=== PATIENT | female | born 2005 | race Caucasian/White ===

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

== ENCOUNTER 2023-01-15 16:20 | Outpatient (CLI) | payer BC, SELFPAY ==
[2023-01-15 17:51] LABS: Basophils Absolute Auto 0.1 K/mm3 (0.0-0.1); Eosinophils Absolute Auto 0.2 K/mm3 (0-0.3); Eosinophils Percent Auto 2.3 % (0-4.4); Hematocrit 43.1 % (37.0-47.0); Hemoglobin 14.3 g/dL (12.0-15.0); Immature Granulocyte Absolute 0.03 K/mm3 (0.00-0.031); Immature Granulocyte Percent A 0.3 % (0-0.5); Lymphocytes Absolute Auto 3.14 K/mm3 (0.9-3.2); Lymphocytes Percent Auto 30.7 % (18.3-44.2); Mean Corpuscular HGB Conc 33.2 g/dl (32-36); Mean Corpuscular Hemoglobin 28.3 pg (26-34); Mean Corpuscular Volume 85.3 fl (80-100); Mean Platelet Volume 10.3 fl (7.4-10.4); Monocytes Absolute Auto 0.7 K/mm3 (0.1-0.6); Monocytes Percent Auto 6.6 % (2.6-8.5); Neutrophils Absolute Auto 6.1 K/mm3 (1.3-6.7); Neutrophils Percent Auto 59.1 % (45.5-73.1); Platelet Count Result 370 k/mm3 (150-375); Red Blood Count 5.05 M/mm3 (4.2-5.4); Red Cell Distribution Width 12.7 % (11.5-14.5); White Blood Count 10.2 K/mm3 (4.5-10.0)
[2023-01-15 18:12] LABS: Alanine Aminotransferase 21 U/L (6-35); Alkaline Phosphatase 55 U/L (45-116); Anion Gap 8 mmol/L (8-16); Aspartate Amino Transferase 31 U/L (14-36); Bilirubin,Total 2.2 mg/dL (0.2-1.3); Blood Urea Nitrogen 12 mg/dL (8-21); CRP < 0.5 mg/dL (<1.0); Carbon Dioxide 28 mmol/L (22-30); Chloride 102 mmol/L (98-107); Estimated Glomerular Filt Rate > 60; Glucose 80 mg/dL (65-110); Potassium 4.3 mmol/L (3.4-5.0); Sodium 138 mmol/L (134-143)
[2023-01-15 18:21] LABS: Vitamin D 25 Hydroxy 36.6 ng/mL
[2023-01-15 22:03] LABS: Erythrocyte Sedimentation Rate 11 mm/hr (0-20)
== END 2023-01-15 16:21 | disposition home or self-care (01) ==
LOC: ANHLAB 16:23
PROVIDERS: PCP Pediatrics; Visit Provider Pediatrics
DX: K52.9 Noninfective gastroenteritis and colitis, unspecified (principal)
CPT/HCPCS: 36415; 80053; 82306; 82607; 85025; 85652; 86140

== ENCOUNTER 2023-08-06 09:38 | Outpatient (CLI) | payer BC, SELFPAY ==
[2023-08-06 11:56] LABS: Basophils Absolute Auto 0.1 K/mm3 (0.0-0.1); Eosinophils Absolute Auto 0.3 K/mm3 (0-0.3); Eosinophils Percent Auto 3.2 % (0-4.4); Hematocrit 40.8 % (37.0-47.0); Hemoglobin 13.4 g/dL (12.0-15.0); Immature Granulocyte Absolute 0.02 K/mm3 (0.00-0.031); Immature Granulocyte Percent A 0.2 % (0-0.5); Lymphocytes Absolute Auto 2.69 K/mm3 (0.9-3.2); Mean Corpuscular HGB Conc 32.8 g/dl (32-36); Mean Corpuscular Hemoglobin 29.3 pg (26-34); Mean Corpuscular Volume 89.3 fl (80-100); Mean Platelet Volume 11.2 fl (7.4-10.4); Monocytes Absolute Auto 0.5 K/mm3 (0.1-0.6); Neutrophils Absolute Auto 4.6 K/mm3 (1.3-6.7); Neutrophils Percent Auto 56.6 % (45.5-73.1); Platelet Count Result 335 k/mm3 (150-375); Red Blood Count 4.57 M/mm3 (4.2-5.4); Red Cell Distribution Width 12.7 % (11.5-14.5); White Blood Count 8.1 K/mm3 (4.5-10.0)
[2023-08-06 12:10] LABS: Alanine Aminotransferase 22 U/L (6-35); Albumin Level 4.5 g/dL (3.7-5.6); Alkaline Phosphatase 47 U/L (45-116); Anion Gap 8 mmol/L (8-16); Aspartate Amino Transferase 30 U/L (14-36); Bilirubin,Total 1.6 mg/dL (0.2-1.3); Blood Urea Nitrogen 11 mg/dL (8-21); CRP < 0.5 mg/dL (<1.0); Calcium 9.3 mg/dL (8.9-10.7); Carbon Dioxide 27 mmol/L (22-30); Chloride 102 mmol/L (98-107); Estimated Glomerular Filt Rate > 60; Glucose 88 mg/dL (65-110); Potassium 3.9 mmol/L (3.4-5.0); Sodium 137 mmol/L (134-143)
[2023-08-06 12:42] LABS: Erythrocyte Sedimentation Rate 8 mm/hr (0-20)
[2023-08-12 17:23] LABS: Calprotectin, Stool 26 mcg/g
== END 2023-08-06 09:39 | disposition home or self-care (01) ==
PROVIDERS: PCP Pediatrics; Visit Provider Pediatrics
DX: K52.9 Noninfective gastroenteritis and colitis, unspecified (principal)
CPT/HCPCS: 36415; 80053; 83993; 85025; 85652; 86140

== ENCOUNTER 2023-08-20 15:50 | Outpatient (CLI) | payer BC, SELFPAY ==
[2023-08-29 17:57] LABS: Adalimumab Ab IBD <10 AU (<10)
== END 2023-08-20 15:51 | disposition home or self-care (01) ==
LOC: ANHLAB 15:53
PROVIDERS: PCP Pediatrics; Visit Provider Pediatrics
DX: K52.9 Noninfective gastroenteritis and colitis, unspecified (principal)
CPT/HCPCS: 36415; 80145; 82607

== ENCOUNTER 2024-01-03 11:03 | Outpatient (CLI) | payer BC, SELFPAY ==
[2024-01-10 18:38] LABS: Calprotectin, Stool 27 mcg/g
== END 2024-01-03 11:04 | disposition home or self-care (01) ==
LOC: ANHLAB 11:06
PROVIDERS: PCP Pediatrics; Visit Provider Pediatrics
DX: K50.00 Crohn's disease of small intestine without complications (principal)
CPT/HCPCS: 83993

== ENCOUNTER 2024-01-07 15:17 | Outpatient (CLI) | payer BC, SELFPAY ==
[2024-01-07 16:12] LABS: Basophils Absolute Auto 0.1 K/mm3 (0.0-0.1); Basophils Percent Auto 0.9 % (0.2-1.2); Eosinophils Absolute Auto 0.3 K/mm3 (0-0.3); Eosinophils Percent Auto 2.7 % (0-4.4); Hematocrit 43.4 % (37.0-47.0); Hemoglobin 14.2 g/dL (12.0-15.0); Immature Granulocyte Absolute 0.03 K/mm3 (0.00-0.031); Immature Granulocyte Percent A 0.3 % (0-0.5); Lymphocytes Absolute Auto 3.66 K/mm3 (0.9-3.2); Lymphocytes Percent Auto 34.9 % (18.3-44.2); Mean Corpuscular HGB Conc 32.7 g/dl (32-36); Mean Corpuscular Hemoglobin 28.5 pg (26-34); Mean Platelet Volume 10.5 fl (7.4-10.4); Monocytes Absolute Auto 0.7 K/mm3 (0.1-0.6); Monocytes Percent Auto 6.7 % (2.6-8.5); Neutrophils Absolute Auto 5.7 K/mm3 (1.3-6.7); Neutrophils Percent Auto 54.5 % (45.5-73.1); Platelet Count Result 385 k/mm3 (150-375); Red Blood Count 4.99 M/mm3 (4.2-5.4); Red Cell Distribution Width 12.9 % (11.5-14.5); White Blood Count 10.5 K/mm3 (4.5-10.0)
[2024-01-07 16:25] LABS: Alanine Aminotransferase 20 U/L (6-35); Albumin Level 4.9 g/dL (3.5-5.1); Alkaline Phosphatase 60 U/L (38-126); Anion Gap 10 mmol/L (8-16); Aspartate Amino Transferase 28 U/L (14-36); Bilirubin,Total 1.5 mg/dL (0.2-1.3); Blood Urea Nitrogen 9 mg/dL (7-17); CRP < 0.5 mg/dL (<1.0); Calcium 9.9 mg/dL (8.4-10.2); Carbon Dioxide 24 mmol/L (22-30); Chloride 103 mmol/L (98-107); Estimated Glomerular Filt Rate > 60; Glucose 91 mg/dL (65-110); Potassium 3.6 mmol/L (3.4-5.0); Sodium 137 mmol/L (137-145)
[2024-01-07 16:30] LABS: Transferrin 323 mg/dL (206-381)
[2024-01-07 17:08] LABS: Iron 74 ug/dL (37-170)
[2024-01-07 17:12] LABS: Erythrocyte Sedimentation Rate 6 mm/hr (0-20)
[2024-01-07 17:18] LABS: Percent Iron Saturation 19 % (20-50)
[2024-01-07 23:17] LABS: Vitamin D 25 Hydroxy 45.9 ng/mL
[2024-01-15 16:29] LABS: Adalimumab Ab IBD <10 AU (<10)
== END 2024-01-07 15:18 | disposition home or self-care (01) ==
LOC: ANHLAB 15:20
PROVIDERS: PCP Pediatrics; Visit Provider Pediatrics
DX: K50.019 Crohn's disease of small intestine with unspecified complications (principal)
CPT/HCPCS: 36415; 80053; 80145; 82306; 82607; 82728; 83540; 83550; 84466; 85025; 85652; 86140

== ENCOUNTER 2024-10-28 15:54 | Outpatient (CLI) | payer BC, SELFPAY ==
[2024-10-28 16:40] LABS: Basophils Absolute Auto 0.1 K/mm3 (0.0-0.1); Basophils Percent Auto 0.9 % (0.2-1.2); Eosinophils Absolute Auto 0.2 K/mm3 (0-0.3); Eosinophils Percent Auto 2.2 % (0-4.4); Immature Granulocyte Absolute 0.03 K/mm3 (0.00-0.031); Immature Granulocyte Percent A 0.3 % (0-0.5); Lymphocytes Absolute Auto 3.52 K/mm3 (0.9-3.2); Mean Corpuscular HGB Conc 33.3 g/dl (32-36); Mean Corpuscular Hemoglobin 29.2 pg (26-34); Mean Corpuscular Volume 87.5 fl (80-100); Monocytes Absolute Auto 0.6 K/mm3 (0.1-0.6); Monocytes Percent Auto 5.8 % (2.6-8.5); Neutrophils Absolute Auto 5.9 K/mm3 (1.3-6.7); Neutrophils Percent Auto 56.8 % (45.5-73.1); Platelet Count Result 366 k/mm3 (150-375); Red Blood Count 5.14 M/mm3 (4.2-5.4); Red Cell Distribution Width 12.4 % (11.5-14.5); White Blood Count 10.4 K/mm3 (4.5-10.0)
[2024-10-28 17:19] LABS: Alanine Aminotransferase 25 U/L (6-35); Alkaline Phosphatase 57 U/L (38-126); Anion Gap 6 mmol/L (4-12); Aspartate Amino Transferase 32 U/L (14-36); Bilirubin,Total 1.3 mg/dL (0.2-1.3); Blood Urea Nitrogen 11 mg/dL (7-17); Calcium 10.2 mg/dL (8.4-10.2); Carbon Dioxide 29 mmol/L (22-30); Chloride 103 mmol/L (98-107); Estimated Glomerular Filt Rate > 60; Glucose 105 mg/dL (65-110); Potassium 3.4 mmol/L (3.4-5.0); Sodium 138 mmol/L (137-145)
[2024-10-28 17:46] LABS: Vitamin D 25 Hydroxy 40.1 ng/mL
== END 2024-10-28 15:55 | disposition home or self-care (01) ==
LOC: ANHLAB 15:59
PROVIDERS: PCP Pediatrics; Visit Provider Pediatrics
DX: K50.00 Crohn's disease of small intestine without complications (principal)
CPT/HCPCS: 36415; 80053; 82306; 82607; 85025

== ENCOUNTER 2025-03-14 12:35 | Outpatient (CLI) | payer BC, SELFPAY ==
--- OUTSIDE RECORDS SUMMARY | 2025-03-14 12:42 | XMS_ITS | Clinical Summary ---
Author Organization [facility] [employer] Address [address] [place] [address] Care Team Providers Care Alarm Signaler Name Role Phone Adolfo Preston MD Primary Care Provider [phone] Source Comments [facility] [employer],non-owned Affiliates and Associated Physician Practices is amultiple site organization consisting of ambulatory clinics and hospital sitesin [place], [place], [place] and [place]. This disclosure is being madepursuant to the Care Everywhere program and may not contain all information available regarding this patient. Last updated 18.BERD [employer] Allergies Active Allergy Reactions Criticality Noted Date Comments Aspirin Other Medium 05/31/2021 Hx crohns Lactose GI Discomfort Medium 04/28/2024 Ibuprofen Other Medium 05/11/2014 Hx crohns. Infliximab Other High 05/11/2014 Syncope and flushing. Medications * Be aware that medications may not be up to date on this document. Alwaysverify current medications with the patient. Ferrous Sulfate (IRON PO) Active acetaminophen (TYLENOL) 325 MG tablet Take 1 (one) tablet by mouth every 4 hours as needed for Fever or Pain Maximum allowable Acetaminophen amount = 4 Grams (4000 mg) / 24 hours. 50 tablet 09/10/20 21 Active sertraline (Zoloft) 100 MG tablet 08/15/20 24 Active multivitamin daily tablet Take 1 (one) tablet by mouth daily with food Active Adalimumab-ada z (Hyrimoz) 40 MG/0.4ML injection Inject 0.4 mL subcutaneously every 14 days 0.8 mL 5 11/07/19 25 Active sertraline (Zoloft) 50 MG tablet Take 1 (one) tablet by mouth once daily Active norethindrone (Incassia) 0.35 MG tablet Take 1 (one) tablet by mouth once daily Active bisacodyl EC (Dulcolax) 5 MG tablet Take all 4 tablets orally at noon the day before your test. 4 tablet 03/09/20 25 Active polyethylene glycol 3350 (Miralax) 17 GM/SCOOP powder Mix all of powder with 64oz liquid. Drink half of mixture at 5pm the night before colonoscopy. Finish at 4am the day of test 238 g 03/09/20 25 Active Slynd 4 MG TABS tablet Take 1 (one) tablet by mouth once daily 04/09/20 24 025 Discontin ued(List Clean-Up) Active Problems Patient Care Coordination No te Formatting of this note migh t be different from the original. Consent obtained for Improve Care Now. Do you have any cultural preferences or concerns? No 05/29/22 Problem Noted Date Diagnosed Date High risk medications (not anticoagulants) long- term use 05/31/2021 Crohn's disease 02/20/2012 Overview (12/30/2023): Brief recap of IBD history She has h/o small bowel Crohn's, h/o IFX ab formation prompting switch to Humira, generally doing well until hospitalization in April 2021 for PBSO. Her MRE during visit was concerning for worsening inflammation in the chronic areas of involvement in TI. She clinically responded to steroids and had surgery consultation during hospitalization. Had limited ileocectomy in Aug 2021. Generally did well post-op Assessment & Plan (06/09/2019 2:17 PM CDT): IN summary, Dawit is a 13 y/o F with stricturing phenotype of Crohn's disease. She is in clinical and biochemical remission. 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 1. Given stricturing phenotype and h/o antibody formation, we discussed utilizing therapeutic drug monitoring to optimize her dose 2. Humira level/antibody today in addition to Crohn's disease surveillance labs 3. Plan for objective evaluation of small bowel disease with MRE next summer (3 years after last MRE in 2017) 4. Reviewed health maintenance related to Crohns - increased risk of skin cancers and importance of sunscreens in the summer months Resolved Problems Problem Noted Date Diagnosed Date Resolved Date Weight loss 05/31/2021 12/30/2023 Partial bowel obstruction 05/31/2021 Acute malnutrition in adolescent 05/31/2021 12/30/2023 Abdominal pain, generalized 04/26/2021 12/30/2023 Assessment & Plan (04/27/2021 1:50 AM CDT): Assessment: Dawit Goodwin is a 15 year old female with PMH of Crohn's disease who presented with 4 days of worsening abdominal pain and 1 day of emesis, decreased PO intake, and diarrhea. CBC and CMP fairly unremarkable. Potentially having a Crohn's flare. Viral gastroenteritis, Bacterial gastroenteritis, UTI, or infection also possible. Urine test was negative. She requires admission for further evaluation/management of her abdominal pain and IV fluids. Plan: - Admit to GI - Dr. Linder - q8h vitals - Regular Diet - I/Os - D5 NS + 20 KCl @ 120 mL/hr - Resume home meds: - Nexium 40 mg - Azathioprime 50 mg - Tylenol PRN - Zofran PRN - Follow up: obstructive series, UA Labs: ESR, CRP, CMP, CBC, Stool Cx, GC + Chlamydia Strep throat 12/02/2012 12/30/2023 Overview (12/02/2012): Two weeks ago Encounters Date Type Department Care Team Description 03/09/[address] [facility]COPY [address] [place] [phone] Sonia Mayfield RN 03/05/2025 2:30 PM CDT Office Visit [facility] - GI [address] [place] [phone] Priscila Cervantes MD Shmais, Manar A, MD Crohn's disease of small intestine without complication (HCC) (Primary Dx) 03/05/2025 Travel 03/02/2025 Telephone [facility] [place] [address] [place] [phone] Cheyanne Keller, RN Appointment (Sooner appointment) from Last 3 Months Immunizations Immunization Administration Dates Next Due Covid Pfizer primary Monoval ent 12+ yr 0.3ml 06/12/2022 Covid Pfizer primary monoval ent 12+ yr 0.3mL Purple cap 04/21/2021,03/30/2021 DTAP 5 PERTUSSIS ANTIGENS 11/16/2008,,05/13/2004,03/18,01/15/2004 FLU VACCINE TRI IIV3 SPLIT I M (FLUVIRIN) 08/22/2012,11/29/2009,11/16/2008,11/14,11/16/2004,09/10/2004 HEP A PEDS 2 DOSE 05/18/2009,11/16/2008 HEP B VACCINE, PED/ADOL 11/16/2004,03/18/2004, HIB-PRP-T 4 DOSE 11/16/2004,03/18/2004, 4 Human Papilloma Virus Nineva lent Vaccine 09/15/2015 Human Papilloma Virus Camila valent Vaccine 05/11/2015,03/05/2015 INFLUENZA VACCINE, QUADR. (F LUZONE PF QUADRIVALENT; 6-35MO), 0.25 ML (IIV4) 10/06/2019 INFLUENZA VACCINE, QUADR. (F LUZONE; FLULAVAL; FLUARIX; AFLURIA QUADRIVALENT; 6MO+), 0.5 ML (IIV4) 09/03/2020,07/09/2018 MENINGOCOCCAL ACWY (MCV4P) VAC IM 11/17/2019,05/2015 MMR VACCINE 11/16/2008,11/16/2004 Meningococcal B Recombinant 2 Dose, IM 0 PNEUMOCOCCAL PCV7 CONJ, PEDS 11/16/2004, 09/10/2004,05/13/2004,03/18 POLIO IPV 11/16/2008, 4,03/18/2004,01/14 TDAP, HISTORIC VACCINE 03/05/2015 VARICELLA 11/16/2008,02/10/2005 Family History Medical History Relation Name Comments None Known Father Vernon Cancer - Colon Maternal Grandfather None Known Mother [place] None Known Sister Woody Celiac Disease Neg Hx Crohn's Disease Neg Hx Ulcerative Colitis Neg Hx Relation Name Status Comments Father Vernon Alive Maternal Grandfather Mother [place] Alive Sister Woody Alive Social History Tobacco Use Types Packs/Day Years Used Date Smoking Tobacco: Never Passive Smoke Exposure: Yes Smokeless Tobacco: Never Tobacco Cessation:Counseling Given: Not Answered Alcohol Use Standard Drinks/Week Comments Yes 0 (1 standard drink = 0.6 oz pur e alcohol) once a month Comments No Sex and Gender Information Value Date Recorded Sex Assigned at Not on file Legal Sex Female 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[employer] Gender Identity Not on file Sexual Orientation Not on file Last Filed Vital Signs Vital Sign Reading Time Taken Comments Blood Pressure 112/72 03/05/2025 2:46 PM CDT Pulse 85 03/05/2025 2:46 PM CDT Temperature 36.8 C (98.3 F) 03/05/2025 2:46 PM CDT Respiratory Rate 18 09/10/2021 12:43 PM MARGARINE MAKER Oxygen Saturation 100% 03/05/2025 2:46 PM CDT Inhaled Oxygen Concentration 100% 03/06/2024 1 0:17 AM CDT Weight 53.2 kg (117 lb 3.2 oz) 03/05/2025 2:46 P M CDT Height 149.9 cm (4' 11 ) 03/05/2025 2:46 PM CDT Body Mass Index 23.67 03/05/2025 2:46 PM CDT Plan of Treatment Upcoming Encounters Date Type Department Care Team (Latest Contact Info) Description 03/25/2025 9:25 AM CDT Hospital Encounter [facility] ENDOSCOPY [address] [place] [phone] Kayden Lozada MD [address] [place] [phone] Surgery General 03/25/2025 9:25 AM CDT - 03/25/2025 10:[address] [facility] END[facility]COPY [address] [place] [phone] Kayden Lozada MD [address] [place] [phone] EGD w/ miralax prep w/ harshad 09/10/2025 2:30 PM MARGARINE MAKER Office Visit [facility] - GI [address] [facility] [place] [address] Kayden Lozada MD [address] [place] [phone] Scheduled Procedures Name Priority Associated Diagnoses Date/Ti me ESOPHAGOGASTRODUODENOSCOPY ( EGD) DIAGNOSTIC Crohn's disease of small and large intestines with complication (HCC) 03/25/2025 9:25 AM CDT COLONOSCOPY DIAGNOSTIC Crohn's disease of small and large intestines with complication (HCC) 03/25/2025 9:25 AM CDT Health Maintenance Due Date Last Done Comments PAP SMEAR 2003 HIV SCREENING 2018 MENINGOCOCCAL (Group B) VACC INE SHARED DECISION-MAKING (2 of 2 - Bexsero SCDM 2-dose series) 05/17/2020 11/17/2019 HEPATITIS C SCREENING 11/09/2021 CHLAMYDIA/GONORRHEA SCREENING 04/27/2022 04/27/2021, 03/31/2021 COVID-19 VACCINE (2023-2 5 season) 2024 06/12/2022, 04/21/2021, 03/30/2021 DEPRESSION SCREENING 10/29/2024 DTAP/TDAP/TD VACCINES (7 - T d or Tdap) 03/05/2025 03/05/2015, 11/16/2008, 02/10/2005, Additional history exists INFLUENZA VACCINE (Season Ended) 2025 09/03/2020, 10/06/2019, 07/09/2018, Additional history exists ZOSTER VACCINE (1 of 2) 2053 HEPATITIS B VACCINE Completed 11/16/2004, 03/18/2004, 01/15/2004 HIB VACCINE Completed 11/16/2004, 02/27, 01/15/2004 PNEUMOCOCCAL VACCINE Completed 11/16/2004, 09/10/2004, 05/13/2004, Additional history exists HPV VACCINE Completed 09/15/2015, 04/28, 03/05/2015 MENINGOCOCCAL GROUPS A/C/Y/W VACCINE Completed 11/17/2019, 03/05/2015 Goals Goal Patient Goal Type Associated Problems Recent Progress Patient-Stated? 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 Burning Plant Operator Device Identifier Shelf Expiration Date Model / Serial / Lot Wire K Dbl End 062 X 9 Implanted:Qty: 1 on 03/05/2014 by Bret Carrero MD at [facility] Left: Arm [facility] ([employer]) [id number] / / Procedures Procedure Name Priority Date/Time Associated Diagnosis Comments CHLAMYDIA + GC AMPLIFIED PROBE Routine 04/27/2021 6:05 AM CDT from Last 3 Months or Most Recently Relevant to Health Maintenance Results * CHLAMYDIA + GC AMPLIFIED PROBE (STL) (04/27/2021 6:05 AM CDT) Chlamydia Amplified Probe Negative Negative 04/27/2021 7:55 PM CDT [facility] GC Amplified Probe Negative Negative 04/27/2021 7:55 PM CDT [facility] Microbiology URINE / Unknown Collection / Unknown 04/27/2021 6:05 AM CDT 04/27/2021 8:25 AM CDT Narrative [facility] - 04/27/2021 7:55 PM CDT Results based on detection/no detection of ribosomal RNA by amplified method. us Anibal Reddy MD LAB - MICROB IOLOGY ORDERABLES Final Result [facility] [address] [place] [address], [facility] [phone] from Last 3 Months or Most Recently Relevant to Health Maintenance Insurance ANTHEM ANTHEM ANTHEM Advance Directives * Full Code (Latest Code Status on File) Date Activated Date Inactivated Comments 09/07/2021 3:08 PM 09/10/2021 5:09 PM * Full Code Date Activated Date Inactivated Comments 04/27/2021 12:36 AM 04/28/2021 5:08 PM Care Teams Alarm Signaler Relationship Specialty Start Date End Date Adolfo Preston MD [address] [place] [address] PCP - General 07/12/10
--- OUTSIDE RECORDS SUMMARY | 2025-03-14 12:42 | XMS_ITS | Data Portability ---
Author Organization [facility] [place] Address [address] [place] [address] [place] [address] Care Team Providers Care Sheet Layer Name Role Phone SUMMERSMIKKI Primary Care Provider Assessment Encounter Date Assessment Date Assessment LastModified by Organization Details LastModified Time 08/14/2023 08/14/2023 Annual gynecological exam performed. Patient will come back in a year unless there are new symptoms. Not available 08/14/2023 16:10:11 01/06/2025 01/06/2025 Annual gynecological exam performed. Patient will come back in a year unless there are new symptoms. [email or web address] Not available 01/06/2025 11:30:32 Plan of Treatment Reminders Order Date Submit Date Provider Last Modified By Organization Details Last Modified Time Details Appointments None recorded. Lab pap, IG + reflex HPV if ASC-U - if hpv positive run subtyping 16, 18/45 2024 025 [facility] (Lab), [address], [place], [address], 5 11:57:56 urinalysis, dipstick 2023 024 [email or web address] [place], [address], [place], [address], 4 15:24:42 test, urine 2023 024 [email or web address], [address], [place], [address], 4 15:02:00 urinalysis, dipstick 2023 024 [email or web address] [place], [address], [facility] [address], [place], [address], 4 15:01:58 Referral None recorded. Procedures None recorded. Surgeries None recorded. Imaging None recorded. Medication Orders norethindro ne (contracept blaine) 0.35 mg tablet 2024 025 [id number] [facility], [address] [place], [address], 5 11:49:54 Macrobid 100 mg capsule 2023 024 [email or web address] [facility] [address], [address], 4 16:11:46 Slynd 4 mg (28) tablet 2023 024 [email or web address] [facility] [address], [place], [address], 4 09:30:19 Slynd 4 mg (28) tablet 2022 023 [facility], [address] [place] [address], [address], 3 16:27:08 Slynd 4 mg (28) tablet 2020 021 [email or web address] [facility] [address], [address], 1 18:57:20 Patient TargetsNo targets recorded. Patient InstructionsNo instructions recorded. Reason for Referral None Reported. Results Created Date Observation Date Name Description Value Unit Range Abnormal Flag Note LastModifiedBy Organization Detail LastModifiedTime 04/08/20 24 04/08/2024 CULTU RE: URINE result report SEE RESULT S BELOW Test: Cultu re: Urine Speci men Sourc e: Urine - Clean Catch Speci men Type: Urine Speci men Date: 2023 3:52 PM Resul t Date: 2023 3:17 AM Resul t Statu s: Final resul t Abnor mal: No Resul ting Lab: [facility] [address] [facility] [address] Tel: CULTU RE ----- ----- ----- --- No growt h in 1 day (dete ction level of 10,00 0 colon ies / ml.) Not Available [facility] (Lab) [address] [facility], [place], [address], 04/10/2024 04:20:23 04/08/20 24 04/08/2024 urina lysis , dipst ick Leukocytes + Not Available [facility] [address], [place], [address], 04/08/2024 14:57:55 04/08/20 24 04/08/2024 urina lysis , dipst ick Blood + Not Available [place] [address], [place], [address], 04/08/2024 14:57:55 04/08/20 24 04/08/2024 pregn alicja test, urine HCG negati ve Not Available [place] [address], [place], [address], 04/08/2024 14:57:46 04/17/20 24 04/17/2024 urina lysis , dipst ick Leukocytes TRACE Not Available Aden jennings [address], [place], [address], 04/17/2024 15:23:45 04/17/20 24 04/17/2024 urina lysis , dipst ick Nitrite NEG Not Available [place] [address], [place], [address], 04/17/2024 15:23:45 04/17/20 24 04/17/2024 urina lysis , dipst ick Urobilinogen NEG Not Available [facility] carlos [address], [place], [address], 04/17/2024 15:23:45 04/17/20 24 04/17/2024 urina lysis , dipst ick Protein TRACE Not Available [place] [address], [place], [address], 04/17/2024 15:23:45 04/17/20 24 04/17/2024 urina lysis , dipst ick pH 8 Not Available [place] [address], [place], [address], 04/17/2024 15:23:45 04/17/20 24 04/17/2024 urina lysis , dipst ick Blood + Not Available [place] [address], [place], [address], 04/17/2024 15:23:45 04/17/20 24 04/17/2024 urina lysis , dipst ick Specific [place] 1.005 Not Available [facility] [address], [place], [address], 04/17/2024 15:23:45 04/17/20 24 04/17/2024 urina lysis , dipst ick Ketone NEG Not Available [place] [address], [place], [address], 04/17/2024 15:23:45 04/17/20 24 04/17/2024 urina lysis , dipst ick Bilirubin NEG Not Available [facility] [address], [place], [address], 04/17/2024 15:23:45 04/17/20 24 04/17/2024 urina lysis , dipst ick Glucose NEG Not Available [place] [address], [place], [address], 04/17/2024 15:23:45 04/17/20 24 04/17/2024 urina lysis , dipst ick Appearance CLOUDY Not Available [facility] dick [address], [place], [address], 04/17/2024 15:23:45 04/17/20 24 04/17/2024 urina lysis , dipst ick Color YELLOW Not Available [place] [address], [place], [address], 04/17/2024 15:23:45 01/07/20 25 01/06/2025 IMAGE GUIDE D PAP, REFLE X HPV IF ASCUS ONLY image guided Pap, reflex HPV ASCUS only SEE RESULT S BELOW CASE REPOR T: Cytol ogy Gynec ologi tamika Repor t Case: [id number] Autho rimyriamn g Provi hali: Josafat king, Oksana , ANP, BREAKDOWN PERSON Colle cted: 01/06 1328 Order ing Locat ion: [place] [facility] Recei danna: 01/07 1159 First Scree n: Olga Crisostomo ret, CT Rescr een: Leandra baca, Shane goodman, CT Speci men: Scree sahra Pap - Image d, Cervi x STATE MENT OF ADEQU ACY: Satis facto ry for evalu ation Trans forma tion zone compo nent prese nt ----- ----- ----- ----- ----- ----- ----- ----- ----- ----- ----- ----- ----- ----- ----- ----- ----- ---- FINAL DIAGN OSIS: Negat blaine for Intra epith elial Lesjacek n or Jitendra gill (NIL) . Elect moraima solomon jace d by Shane baca, CT on 2024 at 1053 CDT ----- ----- ----- ----- ----- ----- ----- ----- ----- ----- ----- ----- ----- ----- ----- ----- ----- ---- COMME NT: This speci men was revie wed by a Cytot echno logis t and/o r Patho logis t (as indic ated in this repor t) after evalu ation using the Thinp rep Imagi ng Syste m. CLINI TAMIKA INFOR MATIO N: Menst rual Statu s: LMP (if appli cable ): Clini tamika Histo ry/Pr eviou s Pap: Type of Neopl garrett (if appli cable ): Signi fican t Clini tamika Findi ngs: Other Histo ry: Hormo ed (if appli cable ): PAP EDUCA HUBERT L NOTE: The Pap Test is a scree sahra test with an inher ent false negat blaine rate. Liqui d-bas ed sampl ing may decre ase, but will not elimi tierra, false negat blaine resul ts. A negat blaine resul t does not precl ude the prese nce and/o r devel opmen t of disea se, since the prese nce of abnor mal cells in the sampl e depen ds on the locat ion of the lesio n and sampl ing techn ique. Mary nued regul ar scree sahra is the best metho d of cance r preve ntion . If repor alejandro cytol ogic findi ng do not corre late with physi tamika and/o r histo rical findi ngs, furth er inves tigat ion is recom ajay d, as clini gale walker nted. Not Available [facility] (Lab) [address], [place], [address], 01/12/2025 11:57:56 Result Notes None recorded. Problems Name Problem SNOMED Code Status Onset Date Resolution Date Notes Provider Name and Address Organization Details Recorded Time Finding of regularit y of menstrual cycle Completed 201808/29/2021 Irregular menstruati on, unspecifie d;Recorded Elsewhere: No Locatio n: [facility] rce: EHR Chroni c: N Practice ID: [id number] Billa ble Time: 08:30:00 AM [facility] 17:14:39 Problem Notes None recorded. Procedures Surgical History Date Name Laterality Status Provider Name and Address Organization Details Recorded Time 09/08/20 21 procedure on ilium completed Rosita Gil [facility] 08/14/2023 16:16:16 Cholecystectomy completed Mary Oneillton [facility] 01/06/2025 11:24:08 Imaging Results None recorded. Procedure Notes None recorded. Medical Equipment None Reported. Allergies Allergen ID Allergen Name Allergen Category Reaction Reaction Severity Criticality Documentation Date Start Date Code Code System Note Provider Name and Address Organization Details Recorded Time 32498 ibuprofen medicatio n Not available Not available Not available 10/15/2020 5640 RxNorm Comme nt: [facility]; Jazmine rico, [facility] 11:22:10 54507 aspirin medicatio n Not available Not available Not available 10/15/2020 1191 RxNorm Comme nt: Locat [facility]: [facility]; Jazmine rico, [facility] 1 11:22:06 19958 azathiopr ine medicatio n Not available Not available Not available 10/15/2020 1256 RxNorm Comme nt: Locat [facility]: [facility] Cau sativ e Agent : Imura n; Jazmine rico, [facility] 11:22:08 72208 lactose food,medi cation Not available Not available Not available 12/09/2020 6211 RxNorm Jazmine rico, [facility] 11:22:15 Medications Name Sig Start Date Stop Date Status Note LastModified by Organization Details LastModified Time tretinoin 0.025 % topical cream PLEASE SEE ATTACHED FOR DETAILED DIRECTIO NS active Not Available Not Available No t Available sertralin e 100 mg tablet TAKE 1 TABLET BY MOUTH EVERY DAY active Not Available Not Available No t Available azathiopr ine 50 mg tablet take 1 tablet by oral route every day 12/08 completed Prescrib ed Elsewher e: Yes Loca tion: [facility] M odify By: [email or web address] E ncounter DateTime : 07/02/20 08:30:00 AM Not Available Not Available Not Available levofloxa everett 250 mg tablet TAKE 1 TABLET BY MOUTH EVERY DAY FOR 5 DAYS 01/06 completed Not Available Not Available Not Available triamcino lone acetonide 0.1 % topical cream PLEASE SEE ATTACHED FOR DETAILED DIRECTIO NS 01/06 completed Not Available Not Available Not Available Macrobid 100 mg capsule Take 1 capsule every 12 hours by oral route for 7 days. 04/21 completed Not Available Not Available Not Available amoxicill in 875 mg tablet 01/06 completed Not Available Not Available Not Available Depo-Prov era 150 mg/mL intramusc ular suspensio n Inject 1 mL every 3 months by intramus cular route for 90 days. 08/30 completed Not Available Not Available Not Available Valtrex 1 gram tablet Take 1 tablet every 12 hours by oral route for 3 days. 03/31 completed Not Available Not Available Not Available ketoconaz ole 2 % topical cream PLEASE SEE ATTACHED FOR DETAILED DIRECTIO NS 08/14 completed Not Available Not Available Not Available sertralin e 50 mg tablet TAKE 1 TABLET BY MOUTH DAILY 01/06 completed Not Available Not Available Not Available doxycycli ne hyclate 100 mg tablet TAKE 1 CAPSULE TWICE A DAY FOR 14 DAYS 08/14 completed Not Available Not Available Not Available clindamyc in 1 % lotion APPLY TO ARMPITS 2 TIMES DAILY UNTIL CLEAR, THEN NEEDED FOR BREAKOUT S 08/14 completed Not Available Not Available Not Available azathiopr ine 08/14 completed Not Available Not Available Not Available Humira 10 mg/0.2 mL subcutane ous syringe kit 08/14 completed Prescrib kailyn Velazco e: Yes Loca tion: Fawad silver [facility] M odaliya By: stephen E ncounter DateTime : 07/02/20 08:30:00 AM Not Available Not Available Not Available Humira(CF ) Pen 40 mg/0.4 mL subcutane ous kit 01/06 completed Not Available Not Available Not Available Incassia 0.35 mg tablet TAKE 1 TABLET BY MOUTH EVERY DAY active Not Available Not Available No t Available Slynd 4 mg (28) tablet TAKE 1 TABLET BY ORAL ROUTE EVERY DAY (MUST MAKE APPOINTM ENT BEFORE ANY MORE REFILLS) active Not Available Not Available No t Available Hyrimoz(C F) Pen 40 mg/0.4 mL subcutane ous pen injector active Not Available Not Available Not Available adalimuma b-ryvk 40 mg/0.4 mL subcutane ous auto-inje ctor kit 01/06 completed Not Available Not Available Not Available Vitals Date Recorded Body weight Systolic blood pressure Diastolic blood pressure Provider Name and Address Organization Details Last Updated DateTime 08/30/2021 33646.79 g 105 mm[Hg] 70 mm[Hg] Mouna Guadalupe [facility] 08/30/2021 13:48:45 Date Recorded Body height Body mass index (BMI) Percentile per age and sex Body mass index (BMI) Body weight Systolic blood pressure Diastolic blood pressure Provider Name and Address Organization Details Last Updated DateTime 3 149.86 cm 41 % 21 kg/m2 78754.6 1 g 105 mm[Hg] 71 mm[Hg] Rosita Gil [facility] 3 16:13:07 Date Recorded Body height Body mass index (BMI) Body mass index (BMI) Percentile per age and sex Body weight Systolic blood pressure Diastolic blood pressure Provider Name and Address Organization Details Last Updated DateTime 4 149.86 cm 21.6 kg/m2 48 % 81672.3 8 g 105 mm[Hg] 73 mm[Hg] Perla Daniel [facility] 4 14:56:47 Date Recorded Body height Body mass index (BMI) Body weight Systolic blood pressure Diastolic blood pressure Provider Name and Address Organization Details Last Updated DateTime 01/06/2025 149.86 cm 23.2 kg/m2 58930.12 g 110 mm[Hg] 75 mm[Hg] Mary Hathaway [facility] 5 11:31:06 Social History Question Answer Notes LastModified by Organizat ion Details LastModified Time Tobacco Smoking Status Never Smoker [facility]upe [facility] 08/29/2021 17:12:55 How Many Years Have You Consumed Alcohol? 1 Information not available 01/06/2025 Are You Blind Or Do You Have Difficulty Seeing? No Information n ot available 08/29/2021 What Is Your Level Of Caffeine Consumption? Occasional Information not available 08/29/2021 In The 14 Days Before Symptom Onset, Have You Had Close Contact With A Laboratory-confirm ed COVID-19 While That Case Was Ill? No Information n ot available 08/14/2023 In The 14 Days Before Symptom Onset, Have You Had Close Contact With A Person Who Is Under Investigation For COVID-19 While That Person Was Ill? No Information not available 08/14/2023 Have You Been To An Area Known To Be High Risk For COVID-19? No Information not available 08/14/2023 Are You Deaf Or Do You Have Serious Difficulty Hearing? No Information not available 08/29/2021 What Type Of Diet Are You Following? REGULAR Information n ot available 08/29/2021 What Is The Highest Grade Or Level Of School You Have Completed Or The Highest Degree You Have Received? [id number] Information not available 04/08/2024 Are There Any Guns Present In Your Home? No Information not available 04/08/2024 Do You Use Protection During Sex? Usually Information not available 04/08/2024 Do You Use Your Seat Belt Or Car Seat Routinely? Yes Information not available 08/29/2021 Do You Have Smoke And Carbon Monoxide Detectors In Your Home? Yes Information not available 08/29/2021 How Much Tobacco Do You Smoke? No Information not available 04/08/2024 Do You Use Sunscreen Routinely? Yes Information not available 08/29/2021 Have You Used IV Drugs? No Information not available 04/08/2024 Sex: Unknown Functional Status Question Answer Note LastModified by Organizat ion Details LastModified Time Do you use any illicit or recreational drugs? No Information not available 08/29/2021 What is your level of alcohol consumption? Moderate Information not available 01/06/2025 Are you able to walk? YESWOREST Information not available 08/29/2021 What is your exercise level? Occasional Information not available 04/08/2024 Mental Status Question Answer Note LastModified by Organization D etails LastModified Time Do you feel stressed (tense, restless, nervous, or anxious, or unable to sleep at night)? [id number] Information not available 08/29/2021 Family History Relationship Description Onset Age of this Age Resolved Age Notes LastModified by Organization Details LastModified Time Maternal Grandfather Hypertensive disorder [email or web address] Not available 2020 14:14:01 Medical History Condition Response Anemia Y GI Problems Y Gynecological History Statement/Question Response Date of Last Mammogram Flow Light Date of LMP 12/18/2024 Was last menstrual period normal N STIs/STDs N Date of Last Colonoscopy Desired Control Method Unknown Abnormal Pap N On BCP's at Conception? Y HPV Vaccine N Colposcopy Duration of Flow (days) 5 Current Control Method BCPs 12 Are cycles usually normal N Sexually Active? Y Menses Monthly N Date of DEXA bone scan Age of first menstrual cycle 10 Date of Last Pap Smear Sexual Problems? N LMP Approximate Obstetrics History GPAL:G 0 P 0 0 0 0 Type Value Living 0 Total 0 Past Encounters Encounter ID Performer Location Encounter Start Date Encounter Closed Date Diagnosis/Indication Diagnosis SNOMED-CT Code Diagnosis ICD10 Code Diagnosis Note [id number] Eugenia Portillo , [facility] [address] [address] 12/09/2020 11:10:00 12/09/2020 15:30:16 Lesion of vulva 777148642 N90.89 N76.0 Unable to definitiel y diagnose issue Possibly this could be previous exposure to HSV-1 as there is one area of possibly lesion; hx of oral hsv; and outbreak is not as severe. We agreed to only send vag cx's & HSV cx for testing today. Will wait on blood work & trial Valtrex treatment. Will call if other treatment is necessary. Pt would like call to go straight to her vs parents as they are not aware she is SA. We discussed HSV in depth & referred to CDC guidelines for further informatio n. will contact us with questions. Sharmaine hong but will contact us when ready to discuss. Time spent in visit is a total of 27 mins with at least 50% of visit consisting of counseling and review of plan of care. Additional precaution laverne measures were taken to minimize potential exposure to the Covid-19 virus during this patient s visit, including available hand concrete block maker upon arrive, temperatur e check and being asked a series of screening questions. All staff wore face coverings during this encounter, as well as provided additional cleaning and sanitizing of all surfaces, including countertop s, pens, chairs, door handles, light switches, etc, prior to and following the patient s visit. [id number] Eugenia Portillo , [facility] [address] [address] 12/24/2020 12:43:45 12/24/2020 14:24:55 Contraception care management 945998804 Z30.9 Pt would like to start p.o.p. Discussed importance of taking at the same time every day. Also informed that it may not be as effective as estrogen containing pills. Discussed all control options in great detail. Pt would like to start POP. She is aware of the risks and benefits. She has contraindi cations to use of OCP or other estrogen containing hormonal therapy. Pt will start her pills on the first sunday following the start of her period. She is aware it is not effective for control the first month. She is also aware of the importance of taking at the same time every day. Encouraged use of condoms as the pill does not protect against STD's. Will return in 3 months for med check. Consent was read and signed. Pt verbalized understand ing. She is lactose intolerant not a true allergy (anaphylac tic rxn) She agreed to trial of these medication knowing that with her sensitive diegestion disease we may need to look to other options such as Depo/IUD/N explanon since these avoid first pass effect. Vaginal irritation 21569 6004 N89.8 Consider HSV serum IgG/IgM type 1 & 2 next visit Unable to perform today as lab closed. 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 Sx's have resolved that she was previously having today. Will send in medication as precaution if experience s vulvar tingling she was having. Or visibe lesions. [id number] Eugenia Portillo [facility] [address],[facility] [place] [address] 03/31/2021 12:46:00 03/31/2021 15:35:26 Contraception care management 169760084 Z30.9 She is at the end of her current SLYND pack. We agreed to pursue Depo this coming sunday @ 8:30am to avoid lapse in . Ecologist Technician: Depo-Prove ra is a female hormonal method of control. It s very effective in preventing . Depo-Prove ra contains a synthetic (man-made) form of the hormone progestero ne, called depo medroxypro gesterone acetate (DMPA). The Depo-Prove ra injection gives 3 months protection against . You should get one injection every 3 months (13 weeks) to get the best protection against . It s safe to get your injection up to 2 weeksearly if you can t get your next injection in exactly 13 weeks. When do Depo-Prove ra hormonal injections start to work? Most girls get their first Depo-Prove ra injection during the first 5-7 days of a normal menstrual period. You are then protected from right after you get the injection. Another way to start DepoProver a is Quick start you get the first injection when you haven t had sex for two weeks (or used a condom 100% of the time) and have a negative test. You then need to use condoms for at least 7 days after the injection for additional protection . How does Depo-Prove ra prevent ? The injected DMPA suppresses your pituitary gland which stops your ovaries from releasing eggs. Without these eggs, can t happen. The injections also change the lining of your uterus and the mucus in your cervix. By changing your cervical mucus, the hormones make it more difficult for sperm to reach the egg. How effective are Depo-Prove ra injection s? If women get Depo-Prove ra injection s at the right time every 3 months, this method is more than 99% effective. Risks for osteoporos is discussed as well. Superficia l pain on intercourse [id number] N94.11 Exam is wnl today. We agreed to update STD screening Will have her trial lubricant to see if this helps. Consider VCG changes moving forward but does not seem to be a contact dermatitis issue per se. She will report back a a few weeks regarding trial of lubricatio n and if anything changes with switch in BC method. [id number] Eugenia Portillo [facility] [address] [address] 04/02/2021 09:54:07 04/06/2021 10:36:57 Contraception care management [id number] Z30.9 Nurses visit today for initial Depo injection #1. test negative 912559670 Z32.02 [id number] Eugenia Portillo [facility] [address],[place] [address] 08/30/2021 13:27:52 08/30/2021 14:29:17 Contraception care management 439313624 Z30.9 Opts to switch back to SLYND.[facility] with [facility] cycle[facility] can come by office for samples.F/ U x 1yr or prn. Time spent in visit is a total of 15 mins with at least 50% of visit consisting of counseling and review of plan of care.Addit ional precaution laverne measures were taken to minimize potential exposure to the Covid-19 virus during this patient s visit, including available hand concrete block maker upon arrive, temperatur e check and being asked a series of screening questions. All staff wore face coverings during this encounter, as well as provided additional cleaning and sanitizing of all surfaces, including countertop s, pens, chairs, door handles, light switches, etc, prior to and following the patient s visit. [id number] VANITA [facility] [address] [address] 08/14/2023 16:04:00 08/14/2023 16:44:07 Gynecologic examination 02164059 Z01.419 Take Calcium with Vitamin D 1200mg daily if not receiving in daily diet. It is strongly advised to have an annual flu shot and up can obtain at most pharmacies . If you have not had a TDap shot in the last 10 years you should obtain one as well. Discussed with patient & provided with informatio n regarding Gardisil vaccine to prevent the 4 strains for HPV that cause cervical cancer. Encourage safe sexual practices, to use condoms and limit partners if not already in a monogamous relationsh ip. Do monthly self breast exams. BRCA testing is now available for patients with strong genetic history of female cancer. If interested contact the office. Engage in daily exercise of low impact aerobic exercise 45-60 minutes 4-5 times weekly. Avoid tobacco, illicit drugs, and alcohol. This lifestyle behavior pattern will lead to less health conditions and longer life span. If BMI greater than 25 weight watchers or dietary consult advised. Pap smear is not recommende d prior to the age of 21. If you have any concerns, pelvic, or vaginal problems we can discuss testing. Patient received above instructio ns, and questions have been answered. If you have any questions please call or respond to this email. Patient was made aware of the patient portal and may obtain a paper copy of today's plan if desired. Pap due age 19yoSTD Screen declinedGe netic Screen discussedC olon Screen naDexa Screen naRoutine Labs PCP Contracept ion care management [id number] Z30.9 happy on SLYNDSent to [facility] if issuesRTO x 1yr or prn [id number] VANITA Mckeon [facility] [address] [address] 04/08/2024 14:51:42 04/08/2024 15:33:33 Irregular periods [id number] N92.6 Contracept ion care management [id number] Z30.9 Discussed recent BTB on slynddiscu ssed alternativ e progestero ne only methods vs continuing slyndshe is overall happy with slynd and would like to continueen couraged to continue to track cycles and notify the office with any heavy/prol onged bleedingta ke pill at same time dailyquest ions answered, refills sentdeclin ed STI screen Urinary symptoms [id number] R39.9 urine cx sent Time spent in visit is a total of 25 mins with at least 50% of visit consisting of counseling and review of plan of care. [id number] VANITA Mckeon [facility] [address] [address] 04/17/2024 14:40:57 04/17/2024 15:25:15 Urinary symptoms [id number] R39.9 [id number] Geovani Navarrete MD [facility] [address] [address] 01/06/2025 11:19:46 01/06/2025 12:17:27 Gynecologic examination [id number] Z01.419 Annual gynecologi tamika exam performed. Patient will come back in a year unless there are new symptoms. Suggest Calcium with Vitamin D if not eating in diet. Patient advised to get annual flu shot. Recommend yearly physicals and perform monthly breast exams. Genetic testing is available for patients with family history of cancer. Engage in safe sexual practices, use condoms. Encouraged to have daily exercise. Avoid tobacco and illicit drugs, moderation of alcohol. If BMI greater than 25 dietary consult advised. If you have any questions please call or email. Pap smear- pap w/ HPV reflex collected laboratory evaluation - PCP STI testing - declined Contracept ion care management [id number] Z30.9 Effectiven ess, correct use, advantages /disadvant ages, common side effects, serious complicati ons, contra-ind ications/p recautions and return to fertility were reviewed for the following: Combined oral contracept blaine (pills/pat ch/ring), Progestero ne-only pills, Depo Provera injection, Nexplanon implant, Kyleena IUD, Mirena IUD, Paragard IUD, Condoms, Diaphragm, Spermicide s. Patient would like to switch to POP - norethindr one 0.35 mg since Slynd was denied by her insurance. Patient to start new pills when next pack is due. Pt aware that she needs to use a backup method with a condom for one month since switching to new OCP. She is also aware of the importance of taking at the same time every day. Encouraged use of condoms as the pill does not protect against STDs. Pt verbalized understand ingKathyJessie mcintyre to call office with any questions or concerns, discussed that it may take up to 3 months for new OCP to regulate cycle. Health Concerns Section Related Observation LastModified by Organization Detai ls LastModified Time None Recorded Concern Status LastModified by Organization Details LastModified Time None Recorded Advance Directives Directive None Recorded Payers Encounter Date Sequence Insurance Name Policy Number Policy Allen Covered Member ID Allen Member [id number]|2025-03-14 12:46:00|2025-03-14 12:45:00|XMS_ITS|BKG DAEMON|External Medical Summaries|[id number]|" Patient Health Record Created on: March 14, 2025 CLAUDIO AVALOS : 10/18/1963 Sex: Male Author Organization [facility] Address [address] [place], [place] [id number] Care Team Providers Care Sheet Layer Name Role Phone BARRY GARCIA Unavailable [phone] Carlos Herrera Unavailable Unavailable Allergies Allergen (clinical drug ingredient) Drug/Non Drug Allergy documented on EMR Reaction Allergy Type Onset Date Status Substance with penicillin structure and antibacterial mechanism of action (substance) Penicillins Reaction:Reacti on 1:Hives Drug Allergy 05/31/2022 active Reason For Referral No Information Medications Medication SIG (Take, Route, Frequency, Duration) Notes Start Date End Date Status traMADol HCl 50 MG Oral for 15 Days Active Furosemide 40 MG TAKE 1 TABLET BY MAXIM TH ONCE DAILY IN THE MORNING Oral for 30 Days Active Albuterol Sulfate HFA 108 (90 Base) MCG/ACT INHALE 2 PUFFS BY MOUTH EVERY 4 TO 6 HOURS NEEDED FOR SHORTNESS OF BREATH OR WHEEZING Inhalation for 17 Days Active Rosuvastatin Calcium 20 MG Oral for 90 Days Active Xarelto 2.5 MG Oral for 90 Days Active Losartan Potassium-HCTZ 100-25 MG Oral for 90 Days Active Immunizations Vaccine Route Administration Date Status Comme nts Pneumococcal conjugate PCV 13 Unknown 09/08/2024 Refuse d Influenza, unspecified formulation Unknown 09/22/2023 A dministered Influenza, high dose seasonal Unknown 09/08/2024 Refuse d Vital Signs Height-cm 165.1 cm 02/16/2025 Weight-kg 81.65 kg 02/16/2025 Height 65 in 02/16/2025 Weight 180 lbs 02/16/2025 BMI 29.95 kg/m2 02/16/2025 Encounters Encounter Location Date Provider Diagnosis [facility] [address] [place] [id number] 02/09/2025 BARRY SNOOK Tinea unguium B35.1 ; Cellulitis of left toe L03.032 ; Acquired keratosis [keratoderma] palmaris et plantaris L85.1 ; Atherosclerosis of [place] arteries of extremities with intermittent claudication, bilateral legs I70.213 ; Pain in right foot M79.671 and Pain in left foot M79.672 [facility] [address] [place] [address] [id number] 06/09/2024 BARRY SNOOK Tinea unguium B35.1 ; Pain in right toe(s) M79.674 ; Pain in left toe(s) M79.675 and Type 2 diabetes mellitus with other circulatory complications E11.59 [facility] [address] [place] [address] [id number] 09/08/2024 BARRY SNOOK Tinea unguium B35.1 ; Pain in right toe(s) M79.674 ; Pain in left toe(s) M79.675 and Type 2 diabetes mellitus with other circulatory complications E11.59 [facility] [address] [id number] 11/10/2024 BARRY SNOOK Tinea unguium B35.1 ; Acquired keratosis [keratoderma] palmaris et plantaris L85.1 ; Atherosclerosis of [place] arteries of extremities with intermittent claudication, bilateral legs I70.213 ; Pain in right foot M79.671 and Pain in left foot M79.672 [facility] [address] [id number] 02/16/2025 BARRY SNOOK Pain in left foot M79.672 ; Cellulitis of left toe L03.032 and Left foot pain M79.672 Assessments Encounter Date Diagnosis (ICD Code) Assessment Notes Treatment Notes Treatment Clinical Notes Section Notes 06/09/2024 Tinea unguium (ICD-10 - B35.1) NAIL DEBRIDEMENT: Nails 1-5 left, 2-5 right were debrided extensively with nail nippers and emery board, reducing length and girth to pink healthy tissue with any subungual debris and necrotic tissue removed 06/09/2024 Pain in right toe(s) (ICD-10 - M79.674) 09/08/2024 Tinea unguium (ICD-10 - B35.1) NAIL DEBRIDEMENT: Nails 1-5 left, 2-5 right were debrided extensively with nail nippers and emery board, reducing length and girth to pink healthy tissue with any subungual debris and necrotic tissue removed 09/08/2024 Pain in right toe(s) (ICD-10 - M79.674) 11/10/2024 Tinea unguium (ICD-10 - B35.1) Nails were debrided extensively with nail nippers and emery board, reducing length and girth to pink healthy tissue with any subungual debris and necrotic tissue removed 11/10/2024 Acquired keratosis [keratoderma] palmaris et plantaris (ICD-10 - L85.1) A total of 1 corns or calluses, as described in the note above, were cut and pared utilizing a #15 blade. Padding: Application of accomodative padding to offload pressure from area. 02/09/2025 Tinea unguium (ICD-10 - B35.1) Nails were debrided extensively with nail nippers and emery board, reducing length and girth to pink healthy tissue with any subungual debris and necrotic tissue removed 02/09/2025 Cellulitis of left toe (ICD-10 - L03.032) Discontinue neosporin. Infection Protocol: Patient instructed to observe foot for signs and symptoms of infection, including but not limited to: increased redness and warmth to the area, increased drainage from the area, foul odor, and/or presence of fever/chills/estephania sea/vomiting. If patient experiences any of the above they are to call the office immediately, if someone is not present in the office then proceed to the nearest ER. 02/16/2025 Cellulitis of left toe (ICD-10 - L03.032) Resolved. Dispesned padding to keep the toes from rubbing against each other forming a wound. Infection Protocol: Patient instructed to observe foot for signs and symptoms of infection, including but not limited to: increased redness and warmth to the area, increased drainage from the area, foul odor, and/or presence of fever/chills/estephania sea/vomiting. If patient experiences any of the above they are to call the office immediately, if someone is not present in the office then proceed to the nearest ER. 02/16/2025 Pain in left foot (ICD-10 - M79.672) 02/16/2025 Left foot pain (ICD-10 - M79.672) 02/09/2025 Acquired keratosis [keratoderma] palmaris et plantaris (ICD-10 - L85.1) A total of 1 corns or calluses, as described in the note above, were cut and pared utilizing a #15 blade. Padding: Application of accomodative padding to offload pressure from area. 11/10/[address] [place] arteries of extremities with intermittent claudication, bilateral legs (ICD-10 - I70.213) 09/08/2024 Pain in left toe(s) (ICD-10 - M79.675) 06/09/2024 Pain in left toe(s) (ICD-10 - M79.675) 09/08/2024 Type 2 diabetes mellitus with other circulatory complications (ICD-10 - E11.59) Diabetic Foot Care: The patient was educated on diabetes and the lower extremity. The patient was instructed to check his feet daily to report any problems or signs of infection immediately. The patient was provided written information on Diabetic Foot Care as well as the Amputation Prevention Guide. 06/09/2024 Type 2 diabetes mellitus with other circulatory complications (ICD-10 - E11.59) Diabetic Foot Care: The patient was educated on diabetes and the lower extremity. The patient was instructed to check his feet daily to report any problems or signs of infection immediately. The patient was provided written information on Diabetic Foot Care as well as the Amputation Prevention Guide. 02/09/[address] [place] arteries of extremities with intermittent claudication, bilateral legs (ICD-10 - I70.213) 11/10/2024 Pain in right foot (ICD-10 - M79.671) 11/10/2024 Pain in left foot (ICD-10 - M79.672) 02/09/2025 Pain in right foot (ICD-10 - M79.671) 02/09/2025 Pain in left foot (ICD-10 - M79.672) Plan Of Treatment Next Appt Details Provider Name:BARRY RADHA, 10:30:00 AM, [address], [place], [place], [id number], Insurance Providers Payer Name Payer Address Payer Phone Subscriber Number Group Number Insured Name Patient Relationship to Insured Coverage Start Date Coverage End Date [employer] PPO [address] [place], [place] [id number] CLAUDIO FLOWERS Self - patient is the insured "
[2025-03-14 13:01] LABS: Hematocrit 45.2 % (37.0-47.0); Hemoglobin 14.5 g/dL (12.0-15.0); Mean Corpuscular HGB Conc 32.1 g/dl (32-36); Mean Corpuscular Hemoglobin 28.5 pg (26-34); Mean Corpuscular Volume 88.8 fl (80-100); Mean Platelet Volume 9.8 fl (7.4-10.4); Platelet Count Result 355 k/mm3 (150-375); Red Blood Count 5.09 M/mm3 (4.2-5.4); Red Cell Distribution Width 12.5 % (11.5-14.5)
[2025-03-14 13:17] LABS: Iron 83 ug/dL (37-170)
[2025-03-14 13:22] LABS: Alanine Aminotransferase 29 U/L (6-35); Alkaline Phosphatase 60 U/L (38-126); Anion Gap 11 mmol/L (4-12); Aspartate Amino Transferase 39 U/L (14-36); Bilirubin,Total 1.2 mg/dL (0.2-1.3); Blood Urea Nitrogen 9 mg/dL (7-17); CRP < 0.5 mg/dL (<1.0); Calcium 9.7 mg/dL (8.4-10.2); Carbon Dioxide 27 mmol/L (22-30); Chloride 102 mmol/L (98-107); Estimated Glomerular Filt Rate > 60; Glucose 114 mg/dL (65-110); Potassium 3.8 mmol/L (3.4-5.0); Sodium 140 mmol/L (137-145)
[2025-03-14 13:26] LABS: Percent Iron Saturation 20 % (20-50)
[2025-03-14 13:52] LABS: Hepatitis B Surface Antigen Negative (Negative)
[2025-03-14 13:57] LABS: Vitamin D 25 Hydroxy 44.6 ng/mL
[2025-03-18 11:59] LABS: NIL 0.04 IU/mL; Quantiferon TB Plus, 1T NEGATIVE (NEGATIVE); TB1-NIL <0.00 IU/mL; TB2-NIL <0.00 IU/mL
[2025-03-19 13:23] LABS: Adalimumab Ab IBD <10 AU (<10)
== END 2025-03-14 12:36 | disposition home or self-care (01) ==
PROVIDERS: PCP Pediatrics
DX: K50.00 Crohn's disease of small intestine without complications (principal)
CPT/HCPCS: 36415; 80053; 80145; 82306; 82728; 83540; 83550; 85027; 86140; 86480; 87340

== ENCOUNTER 2025-03-21 12:56 | Outpatient (CLI) | payer BC, SELFPAY ==
--- OUTSIDE RECORDS SUMMARY | 2025-03-21 13:05 | XMS_ITS | Data Portability ---
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 Patient will come back in a year unless there are new symptoms. Not available 08/14/2023 16:10:11 01/06/2025 01/06/2025 Annual gynecological exam performed. Patient will come back in a year unless there are new symptoms. [email or web address] Not available 01/06/2025 11:30:32 Plan of Treatment Reminders Order Date Submit Date Provider Last Modified By Organization Details Last Modified Time Details Appointments None recorded. Lab pap, IG + reflex HPV if ASC-U - if hpv positive run subtyping 16, 18/45 2024 025 [facility] (Lab), [address], [place], [address], 5 11:57:56 urinalysis, dipstick 2023 024 [email or web address] [place], [address], [place], [address], 4 15:24:42 test, urine 2023 024 [address], [address], [place], [address], 4 15:02:00 urinalysis, dipstick 2023 024 [email or web address] [place], [address], [address], [place], [address], 4 15:01:58 Referral None recorded. Procedures None recorded. Surgeries None recorded. Imaging None recorded. Medication Orders norethindro ne (contracept blaine) 0.35 mg tablet 2024 025 SAMINA [facility] [address], [address], [place], [address], 5 11:49:54 Macrobid 100 mg capsule 2023 024 [email or web address] [facility] [address], [place], [address], 4 16:11:46 Slynd 4 mg (28) tablet 2023 024 [email or web address] [facility] [address], [place], [address], 4 09:30:19 Slynd 4 mg (28) tablet 2022 023 [facility], [address] [place] [address], [address], 3 16:27:08 Slynd 4 mg (28) tablet 2020 021 [email or web address] [facility] [address], [place], [address], 1 18:57:20 Patient TargetsNo targets recorded. Patient [...] t Abnor mal: No Resul ting Lab: [facility] [address] [facility] [address] Tel: CULTU RE ----- ----- ----- --- No growt h in 1 day (dete ction level of 10,00 0 colon ies / ml.) Not Available [facility] (Lab) [address], [place], [address], 04/10/2024 04:20:23 04/08/20 24 04/08/2024 urina lysis , dipst ick Leukocytes + Not Available [facility] [address], [place], [address], 04/08/2024 14:57:55 04/08/20 24 04/08/2024 urina lysis , dipst ick Blood + Not Available [place] [address], [place], [address], 04/08/2024 14:57:55 04/08/20 24 04/08/2024 pregn alicja test, urine HCG negati ve Not Available [place] [address], [place], [address], 04/08/2024 14:57:46 04/17/20 24 04/17/2024 urina lysis , dipst ick Leukocytes TRACE Not Available Aden jennings [address], [place], [address], 04/17/2024 15:23:45 04/17/20 24 04/17/2024 urina lysis , dipst ick Nitrite NEG Not Available [place] [address], [place], [address], 04/17/2024 15:23:45 04/17/20 24 04/17/2024 urina lysis , dipst ick Urobilinogen NEG Not Available [facility] carlos [address], [place], [address], 04/17/2024 15:23:45 04/17/20 24 04/17/2024 urina lysis , dipst ick Protein TRACE Not Available [place] [address], [place], [address], 04/17/2024 15:23:45 04/17/20 24 04/17/2024 urina lysis , dipst ick pH 8 Not Available [place] [address], [place], [address], 04/17/2024 15:23:45 04/17/20 24 04/17/2024 urina lysis , dipst ick Blood + Not Available [place] [address], [place], [address], 04/17/2024 15:23:45 04/17/20 24 04/17/2024 urina lysis , dipst ick Specific [place] 1.005 [facility] Available [facility] [address], [place], [address], 04/17/2024 15:23:45 04/17/20 24 04/17/2024 urina lysis , dipst ick Ketone NEG Not Available [place] [address], [place], [address], 04/17/2024 15:23:45 04/17/20 24 04/17/2024 urina lysis , dipst ick Bilirubin NEG Not Available [facility] [address], [place], [address], 04/17/2024 15:23:45 04/17/20 24 04/17/2024 urina lysis , dipst ick Glucose NEG Not Available [place] [address], [place], [address], 04/17/2024 15:23:45 04/17/20 24 04/17/2024 urina lysis , dipst ick Appearance CLOUDY Not Available [facility] dick [address], [place], [address], 04/17/2024 15:23:45 04/17/20 24 04/17/2024 urina lysis , dipst ick Color YELLOW Not Available [place] [address], [place], [address], 04/17/2024 15:23:45 01/07/20 25 01/06/2025 IMAGE GUIDE D PAP, REFLE X HPV IF ASCUS ONLY image guided Pap, reflex HPV ASCUS only SEE RESULT S BELOW CASE REPOR T: Cytol ogy Gynec ologi marcia Repor t Case: [id number] Autho rizin g Provi hali: Dermo dy, Oksana , ANP, PIPE CHIPPER Colle cted: 01/06 1328 Order ing Locat ion: [place] [facility] Recei danna: 01/07 1159 First Scree n: Olga Crisostomo ret, CT Rescr een: Leandra z, Shane goodman, CT Speci men: Scree sahra Pap - Image d, Cervi x STATE MENT OF ADEQU ACY: Satis facto ry for evalu ation Trans forma tion zone compo nent prese nt ----- ----- ----- ----- ----- ----- ----- ----- ----- ----- ----- ----- ----- ----- ----- ----- ----- ---- FINAL DIAGN OSIS: Negat blaine for Intra epith elial Pavithra n or Jitendra gill (NIL) . Elect [...] Thinp rep Imagi ng Syste m. CLINI MARCIA INFOR MATIO N: Menst rual Statu s: LMP (if appli cable ): Clini marcia Histo ry/Pr eviou s Pap: Type of Neopl garrett (if appli cable ): Signi fican t Clini marcia Findi ngs: Other Histo ry: Hormo ed [...] ng do not corre late with physi marcia and/o r histo rical findi ngs, furth er inves tigat ion is recom ajay d, as clini agle walker nted. Not Available [facility] (Lab) [address], [place], [address], 01/12/2025 11:57:56 Result Notes None recorded. Problems Name Problem SNOMED Code Status Onset Date Resolution Date Notes Provider Name and Address Organization Details Recorded Time Finding of regularit y of menstrual cycle Completed 201808/29/2021 Irregular menstruati on, unspecifie d;Recorded Elsewhere: No Locatio n: [facility] rce: EHR Chroni c: N Practice ID: 0001 Billa ble Time: 08:30:00 AM [facility] 17:14:39 Problem Notes None recorded. Procedures Surgical History Date Name Laterality Status Provider Name and Address Organization Details Recorded Time 09/08/20 21 procedure on ilium completed Rosita Gil [facility] 08/14/2023 16:16:16 Cholecystectomy completed Mary Oneillton [facility] 01/06/2025 11:24:08 Imaging Results None recorded. Procedure Notes None recorded. Medical Equipment None Reported. Allergies Allergen ID Allergen Name Allergen Category Reaction Reaction Severity Criticality Documentation Date Start Date Code Code System Note Provider Name and Address Organization Details Recorded Time 68252 ibuprofen medicatio n Not available Not available Not available 10/15/2020 5640 RxNorm Comme nt: [facility]at [facility]; Jazmine rico, [facility] 11:22:10 32350 aspirin medicatio n Not available Not available Not available 10/15/2020 1191 RxNorm Comme nt: Locat ion: [facility]; Jazmine rico, [facility] 1 11:22:06 23097 azathiopr ine medicatio n Not available Not available Not available 10/15/2020 1256 RxNorm Comme nt: Locat ion: [facility] Cau sativ e Agent : Imura n; Jazmine rico, [facility] 11:22:08 86047 lactose food,medi cation Not available Not available Not available 12/09/2020 6211 RxNorm Jazmine rico, [place] - [facility] 11:22:15 Medications Name Sig Start Date [...] tion: [facility] M odify By: stephen E ncounter DateTime : 07/02/20 [...] UNTIL CLEAR, THEN NEEDED FOR BREAKOUT S 10/17 /2023 completed Not Available Not Available Not Available azathiopr ine 08/14 completed Not Available Not Available Not Available Humira 10 mg/0.2 mL subcutane ous syringe kit 08/14 completed Prescrib kailyn Velazco e: Yes Loca tion: Fawad silver [facility] M odaliya By: lenoraose E ncounter DateTime : 07/02/20 08:30:00 AM [...] Address Organization Details Last Updated DateTime 08/30/2021 43800.79 g 105 mm[Hg] 70 mm[Hg] Mouna Guadalupe [facility] 08/30/2021 13:48:45 Date Recorded Body height Body mass index (BMI) Percentile per age and sex Body mass index (BMI) Body weight Systolic blood pressure Diastolic blood pressure Provider Name and Address Organization Details Last Updated DateTime 3 149.86 cm 41 % 21 kg/m2 39876.6 1 g 105 mm[Hg] 71 mm[Hg] Rosita Gil [facility] 3 16:13:07 Date Recorded Body height Body mass index (BMI) Body mass index (BMI) Percentile per age and sex Body weight Systolic blood pressure Diastolic blood pressure Provider Name and Address Organization Details Last Updated DateTime 4 149.86 cm 21.6 kg/m2 48 % 23111.3 8 g 105 mm[Hg] 73 mm[Hg] Perla Daniel [facility] 4 14:56:47 Date Recorded Body height Body mass index (BMI) Body weight Systolic blood pressure Diastolic blood pressure Provider Name and Address Organization Details Last Updated DateTime 01/06/2025 149.86 cm 23.2 kg/m2 23157.12 g 110 mm[Hg] 75 mm[Hg] Mary Hathaway [facility] 5 11:31:06 Social History Question Answer Notes LastModified by Organizat ion Details LastModified Time Tobacco Smoking Status Never Smoker [facility]a [facility]upe [facility] 08/29/2021 17:12:55 How Many Years Have You Consumed Alcohol? 1 [email or web address] Information not available 01/06/2025 Are You Blind [...] Or The Highest Degree You Have Received? KS57843-7 Information not available 04/08/2024 Are There Any [...] is your level of alcohol consumption? Moderate [email or web address] Information not available 01/06/2025 Are you able to walk? YESWOREST Information not available 08/29/2021 What is your exercise level? Occasional Information not available 04/08/2024 Mental Status Question Answer Note LastModified by Organization D etails LastModified Time Do you feel stressed (tense, restless, nervous, or anxious, or unable to sleep at night)? [id number] Information not available 08/29/2021 Family History Relationship [...] SNOMED-CT Code Diagnosis ICD10 Code Diagnosis Note [id number] Eugenia Portillo , [facility] [address] [address] 12/09/2020 11:10:00 12/09/2020 15:30:16 Lesion of vulva 041623605 N90.89 N76.0 Unable to definitiel y diagnose [...] n. will contact us with questions. Sharmaine RIBEIRO but will contact us when ready to discuss. Time spent in visit is a total of 27 mins with at least 50% of visit consisting of counseling and review of plan of care. Additional precaution laverne measures were taken to minimize potential exposure to the Covid-19 virus during this patient s visit, including available hand hydrographer upon arrive, temperatur e check and being asked a series of screening questions. All staff wore face coverings during this encounter, as well as provided additional cleaning and sanitizing of all surfaces, including countertop s, pens, chairs, door handles, light switches, etc, prior to and following the patient s visit. [id number] Eugenia Portillo , [facility] [address] [address] 12/24/2020 12:43:45 12/24/2020 14:24:55 Contraception care management 373821581 Z30.9 Pt would like to start p.o.p. [...] these avoid first pass effect. Vaginal irritation 01416 6004 N89.8 Consider HSV serum IgG/IgM type 1 & 2 next visit Unable to perform today as lab closed. 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 Sx's have resolved that she was previously having today. Will send in medication as precaution if experience s vulvar tingling she was having. Or visibe lesions. [id number] Eugenia Portillo [facility] [address],[facility] [address] 03/31/2021 12:46:00 03/31/2021 15:35:26 Contraception care management 072635501 Z30.9 She is at the end of her current SLYND pack. We agreed to pursue Depo this coming sunday @ 8:30am to avoid lapse in . 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 Superficia l pain on intercourse 089341598 N94.11 Exam is wnl today. We agreed to update STD screening Will have her trial lubricant to see if this helps. Consider VCG changes moving forward but does not seem to be a contact dermatitis issue per se. She will report back a a few weeks regarding trial of lubricatio n and if anything changes with switch in BC method. [id number] Eugenia Portillo [facility] [address],[place] [address] 04/02/2021 09:54:07 04/06/2021 10:36:57 Contraception care management 199604241 Z30.9 Nurses visit today for initial Depo injection #1. test negative 709083848 Z32.02 [id number] Eugenia Portillo [facility] [address],[place] [address] 08/30/2021 13:27:52 08/30/2021 14:29:17 Contraception care management 717062269 Z30.9 Opts to switch back to SLYND.[facility] start with next cycle.[facility] not cover can come by office for samples.F/ U x 1yr or prn. Time spent in visit is a total of 15 mins with at least 50% of visit consisting of counseling and review of plan of care.Addit ional precaution laverne measures were taken to minimize potential exposure to the Covid-19 virus during this patient s visit, including available hand hydrographer upon arrive, temperatur e check and being asked a series of screening questions. All staff wore face coverings during this encounter, as well as provided additional cleaning and sanitizing of all surfaces, including countertop s, pens, chairs, door handles, light switches, etc, prior to and following the patient s visit. [id number] VANITA [facility] [address] [address] 08/14/2023 16:04:00 08/14/2023 16:44:07 Gynecologic examination 93832571 Z01.419 Take Calcium with Vitamin D 1200mg [...] naRoutine Labs PCP Contracept ion care management 851708515 Z30.9 happy on [facility] ll if issuesRTO x 1yr or prn [id number] VANITA Mckeon [place] [address] [address] 04/08/2024 14:51:42 04/08/2024 15:33:33 Irregular periods 39648973 N92.6 Contracept ion care management 987264315 Z30.9 Discussed recent BTB on slynddiscu ssed alternativ e progestero ne only methods vs continuing slyndshe is overall happy with slynd and would like to continueen couraged to continue to track cycles and notify the office with any heavy/prol onged bleedingta ke pill at same time dailyquest ions answered, refills sentdeclin ed STI screen Urinary symptoms 1424785 08 R39.9 urine cx sent Time spent in visit is a total of 25 mins with at least 50% of visit consisting of counseling and review of plan of care. [id number] VANITA Mckeon [place] [address] [address] 04/17/2024 14:40:57 04/17/2024 15:25:15 Urinary symptoms 346691401 R39.9 [id number] Geovani Navarrete MD [place] [address] [address] 01/06/2025 11:19:46 01/06/2025 12:17:27 Gynecologic examination 12735627 Z01.419 Annual gynecologi marcia exam performed. Patient will come back in [...] testing - declined Contracept ion care management 469245620 Z30.9 Effectiven ess, correct use, advantages /disadvant [...] not protect against STDs. Pt verbalized understand ingBarbara mcintyre to call office with any questions [...] Policy Allen Covered Member ID Allen Member ID Guarantor Name 08/30/2021 2 [facility] Ellie Buddy [id number] Dawit Goodwin 08/30/2021 1 [facility] Ellie Buddy [id number] Dawit Buddy 08/14/2023 1 [facility] [id number] Dawit Buddy [id number] Dawit Goodwin 04/08/2024 2 [employer] [employer] [id number] Ellie Buddy [id number] Dawit Goodwin 04/08/2024 1 [employer] [id number] Edenilson Buddy [id number] Dawit Goodwin 04/17/2024 2 [employer] [id number] Ellie Buddy [id number] Dawit Goodwin 04/17/2024 1 [employer] [id number] Edenilson Buddy [id number] Dawit Faithjavier 01/06/2025 2 [employer] [id number] Ellie Buddy [id number] Dawit Buddy 01/06/2025 1 [employer] [id number] Edenilson Buddy [id number] Dawit Goodwin Notes Date Note Type Note Provider Name and Address Organization Details Recorded Time 08/30/2021 text/html Here today to discuss d/c depo injections & restarting SLYND.Feels Depo made her more amaya & had a lot of AUB.Did better on SLYND now that she has the comparison.Not currently Sexually active in the last 3mos. VANITA Plunkett- [address], [place], [address], [facility] 08/30/2021 14:23:40 08/14/2023 text/html Annual GYNReport ed bypatient.History:no gynecologic complaints Menstrual cycle:Normal menses Urinary symptoms:No hematuria; No incontinence Vulva:No genital lesion Vagina:Normal vaginal discharge Breast:No breast pain; No breast lump; No nipple discharge Current Contraception:Satisf ied with current contraception; Oral contraceptives Sexual complaints:No sexual complaints; No pain during intercourse; Normal libido Menopausal Symptoms:No menopausal symptoms; Normal vaginal lubrication Psychological symptoms:No depression; No anxiety; No PMDD Preventive measures:Encourage self breast examination; Encourage regular exercise; Encourage no tobacco use; Encourage regular mammograms starting age 40 Eugenia Portillo [place]- [address], [place], [address], [facility] 08/14/2023 16:39:46 04/08/2024 text/html 18yo G0here toda y to discuss periods on slyndon slynd x 6 months per ptthe past 2 months her bleeding has occurred in the middle of the pack, lasting about 5 days, very lighttakes at same time daily, does not miss doses treated for UTI last week per pt, completed macrobid course. Still feeling slight irritation at times, none now neg pelvic painneg n/v/fneg flu-like symptomsneg discharge, odors, itchingneg dysuria medical hx: crohn's VANITA Mckeon [address], [place], [address], [facility] 04/08/2024 15:25:01 01/06/2025 text/html Annual GYNReport ed bypatient.Menstrual cycle:Normal menses Urinary symptoms:No hematuria; No incontinence Vulva:No genital lesion Vagina:Normal vaginal discharge Breast:No breast pain; No breast lump; No nipple discharge Current Contraception:Satisf ied with current contraception; Oral contraceptives Sexual complaints:No sexual complaints; No pain during intercourse; Normal libido Menopausal Symptoms:No menopausal symptoms; Normal vaginal lubrication Psychological symptoms:No depression; No anxiety; No PMDD Preventive measures:Encourage self breast examination; Encourage regular exercise; Encourage no tobacco use; Encourage regular mammograms starting age 40 Patient presents for annual well woman exam. Patient doing well on Slynd, however, prior auth for Slynd was recently denied. Patient interested in another progesterone-only pill option. OKSANA CRISTINA, [place] [address], [place], [address], [facility] 01/06/2025 12:17:16 OBGyn Episode No OBEpisode recorded.
--- OUTSIDE RECORDS SUMMARY | 2025-03-21 13:05 | XMS_ITS | Clinical Summary ---
Author Organization [facility] [employer] Address [address] 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 This disclosure is being madepursuant to the Care Everywhere program and may not contain all information available regarding this patient. Last updated 18.[employer] Allergies Active Allergy Reactions Criticality Noted Date [...] Department Care Team Description 03/09/2025 Orders Only [facility] [address] [place] [address] Sonia Mayfield RN 03/05/2025 2:30 PM CDT Office Visit [facility] [address] [place] [phone] Priscila Cervantes MD Shmais, Manar A, MD Crohn's disease of small intestine without complication (HCC) (Primary Dx) 03/05/2025 Travel 03/02/2025 Telephone [facility] [place] [address] [place] [phone] Cheyanne Keller, RN Appointment (Sooner appointment) from [...] on file 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 Gender Identity Not on file Sexual Orientation Not on file Last Filed Vital Signs Vital Sign Reading Time Taken Comments Blood Pressure 112/72 03/05/2025 2:46 PM CDT Pulse 85 03/05/2025 2:46 PM CDT Temperature 36.8 C (98.3 F) 03/05/2025 2:46 PM CDT Respiratory Rate 18 09/10/2021 12:43 PM 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 Oxygen Saturation 100% 03/05/2025 2:46 PM CDT Inhaled Oxygen Concentration 100% 03/06/2024 1 0:17 AM CDT Weight 53.2 kg (117 lb 3.2 oz) 03/05/2025 2:46 P M CDT Height 149.9 cm (4' 11 ) 03/05/2025 2:46 PM CDT Body Mass Index 23.67 03/05/2025 2:46 PM CDT Plan of Treatment Upcoming Encounters Date Type Department Care Team (Latest Contact Info) Description 03/25/2025 9:30 AM CDT Hospital Encounter [facility] [address] [place] [phone] Kayden Lozada MD [address] [place] [phone] Surgery General 03/25/2025 9:30 AM CDT - 03/25/2025 10:15 AM CDT Surgery [facility] [address] [place] [phone] Kayden Lozada MD [address] [place] [phone] EGD w/ miralax prep w/ harshad 09/10/2025 2:30 PM 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 [facility] [place] [phone] Kayden Lozada MD [address] [place] [phone] Scheduled Procedures Name Priority Associated Diagnoses Date/Ti me ESOPHAGOGASTRODUODENOSCOPY ( EGD) DIAGNOSTIC Crohn's disease of small and large intestines with complication (HCC) 03/25/2025 9:30 AM CDT COLONOSCOPY DIAGNOSTIC Crohn's disease of small and large intestines with complication (HCC) 03/25/2025 9:30 AM CDT Health Maintenance Due Date Last [...] last dose Medical Devices Implanted Type Area Silver Miner Blasting Device Identifier Shelf Expiration Date Model / Serial / Lot Wire K Dbl End 062 X 9 Implanted:Qty: 1 on 03/05/2014 by Bret Carrero MD at [facility] Left: Arm [facility] ([employer]) [id number] / / Procedures Procedure Name Priority Date/Time Associated Diagnosis Comments CHLAMYDIA + GC AMPLIFIED PROBE Routine 04/27/2021 6:05 AM CDT from Last 3 Months or Most Recently Relevant to Health Maintenance Results * CHLAMYDIA + GC AMPLIFIED PROBE (STL) (04/27/2021 6:05 AM CDT) Chlamydia Amplified Probe Negative Negative 04/27/2021 7:55 PM CDT [facility] GC Amplified Probe Negative Negative 04/27/2021 7:55 PM CDT [facility] Microbiology URINE / Unknown Collection / Unknown 04/27/2021 6:05 AM CDT 04/27/2021 8:25 AM CDT Narrative [facility] - 04/27/2021 7:55 PM CDT Results based on detection/no detection of ribosomal RNA by amplified method. us Anibal Reddy MD LAB - MICROB IOLOGY ORDERABLES Final Result [facility] [address] [place] [address], [facility] [phone] from Last 3 Months or Most Recently Relevant to Health Maintenance Insurance ANTHEM ANTHEM ANTHEM Advance Directives * Full Code (Latest Code Status on File) Date Activated Date Inactivated Comments 09/07/2021 3:08 PM 09/10/2021 5:09 PM * Full Code Date Activated Date Inactivated Comments 04/27/2021 12:36 AM 04/28/2021 5:08 PM Care Teams Fruit Loader Relationship Specialty Start Date End Date Adolfo Preston MD [address] [place] [address] PCP - General 07/12/10
[2025-03-27 19:04] LABS: Calprotectin, Stool 8 mcg/g
== END 2025-03-21 12:57 | disposition home or self-care (01) ==
LOC: ANHLAB 13:04
PROVIDERS: PCP Pediatrics
DX: K50.00 Crohn's disease of small intestine without complications (principal)
CPT/HCPCS: 83993

== ENCOUNTER 2025-07-12 11:38 | Emergency (ER) | payer BC, SELFPAY ==
[2025-07-12 12:03] VITALS: BP 106/70; PULSE 80; RESP 18; TEMP 36.8; O2SAT 99
[2025-07-12 12:08] LABS: EDSTREPNEGPOS1 Negative (Negative)
--- NOTE | 2025-07-12 12:29 | ED_ITS ---
HPI - URI/Sore Throat General Chief Complaint: Upper Respiratory Infection Stated Complaint: Sore throat Time Seen by Provider: 07/12/25 12:30 Source: patient, RN notes reviewed and old records reviewed Mode of arrival: ambulatory Limitations: no limitations History of Present Illness HPI Narrative: 19-year-old female presents to the [facility] with complaints of a sore throat for 3 days. States that she has ear fullness, denies fevers, denies pain. Has taken Sudafed. Onset (ago): day(s) (3) Treatments prior to arrival: other (Sudafed) Related Data Home Medications ?Medication ?Instructions ?Recorded ?Confirmed ?Last Taken ?Type adalimumab-adaz 40 mg/0.4 mL mg subcut 07/12/25 Unkno wn History subcutaneous pen injector (Hyrimoz(CF) Pen) cholestyramine (with sugar) 4 gram ea 07/12/25 Unknow n History powder for susp in a packet clobetasol 0.05 % scalp solution topical 07/12/25 Unk nown History clobetasol 0.05 % shampoo topical 07/12/25 Unknown Hi story clobetasol 0.05 % topical cream topical 07/12/25 Unkn own History drospirenone (contraceptive) 4 mg 07/12/25 Unknown H istory (28) tablet (Slynd) norethindrone (contraceptive) 0.35 mg 07/12/25 Unknow n History mg tablet (Incassia) sertraline 100 mg tablet mg 07/12/25 Unknown History Allergies Allergy/AdvReac Type Severity Reaction Status Date / Time NSAIDS (Non-Steroidal AdvReac Intermediate bleed Verified 07/12/25 12:03 Anti-Inflamma Review of Systems Review of Systems: All systems reviewed & are unremarkable except as noted in HPI and below Constitutional: Constitutional: Reports no additional constitutional complaints ENT: Reports as per HPI and Reports sore throat Cardiovascular: Cardiovascular: Reports no additional cardiovascular complaints, Denies chest pain and Denies dyspnea Respiratory: Respiratory: Reports no additional respiratory complaints, Denies chest congestion, Denies cough and Denies dyspnea Musculoskeletal: Musculoskeletal: Reports no additional musculoskeletal complaints Integumentary/Breasts: Skin/Breast: Reports system reviewed and no additional complaints, except as docu PMFSH Comments At the time of my signature, I reviewed and agree with the nursing past medical, surgical, social, and family history. There is no relevant family history pertinent to the patient complaint. Exam Const: General: cooperative, healthy appearing, comfortable, no acute distress, well developed, alert and well nourished Nutritional Appearance: well nourished Orientation/consciousness: patient oriented x3 Limitations: no limitations HENMT: Head: normal to inspection Ears: hearing grossly normal bilaterally, external ears normal, TM's normal bilaterally, EAC's normal, mastoids normal and no periauricular adenopathy Face and sinus: normal facial exam, sinuses nontender and face symmetric Mouth: Yes Normal oral and palatal mucosa present, Yes lip normal, Yes tongue normal and Yes moist mucous membranes Throat: posterior oropharynx normal, tonsils normal, uvula midline and no uvular edema Eyes: General: appearance normal, both eyes and all related structures Alignment and Position: alignment normal Neck: Neck: normal visual inspection, full ROM, no lymphadenopathy and no meningeal signs Chest: Chest palpation & inspection: normal inspection of the chest Resp: Effort & Inspection: normal respiratory effort and able to speak in complete sentences Auscultation: clear to auscultation bilaterally, no crackles, no rales, no rhonchi and no wheezes Cardio: Rate: regular rate Skin: General skin exam: normal color and no rashes or lesions noted Neuro: General: patient oriented x3, gait normal, moves all extremities and no meningeal signs Cognition (Neuro): normal cognition Speech: normal speech Gait exam (Neuro): Normal gait present Extrem: General: normal to inspection, full ROM, capillary refill normal and normal gait Psych: Appearance: grossly normal and well kempt Mental Status: mental status grossly normal Speech and movement: Normal speech and movement present and Clear speech present Affect: normal affect Attitude: cooperative Course Course Level of Care: Express Care Visit Vital Signs Vital signs: Vital Signs Temperature 98.3 F 07/12/25 12:03 Pulse Rate 80 07/12/25 12:03 Respiratory Rate 18 07/12/25 12:03 Blood Pressure 106/70 07/12/25 12:03 Pulse Oximetry 99 07/12/25 12:03 Temperature 98.3 F 07/12/25 12:03 Pulse Rate 80 07/12/25 12:03 Respiratory Rate 18 07/12/25 12:03 Blood Pressure 106/70 07/12/25 12:03 Pulse Oximetry 99 07/12/25 12:03 Reviewed MDM - URI/Sore Throat MDM Narrative Medical decision making narrative: Patient sitting comfortably in exam room. Patient is nontoxic, vitals stable. Presents with 3 day history of a sore throat, strep test negative. No acute findings noted on exam. Patient is appropriate for outpatient treatment with close follow-up Discharge instructions reviewed with patient, as well as provided in writing per nursing staff. The instructions also include specific and strict return/GO TO THE ER as well as f/u information. All questions have been answered, and the patient deny any further questions with discharge and discharge plan. Some parts of this dictation were generated by voice recognition software and may contain typographical and/or grammatical inaccuracies. Differential Diagnosis Differential diagnosis: Likely upper respiratory infection, otitis media, sinusitis, viral infection, bronchitis, influenza and pharyngitis Lab Data Labs: Lab Results 07/12/25 Range/Units 12:05 POC Grp A Strep Screen Negative (Negative) Reviewed Critical Care Time Critical Care Time Critical Care Time: No Discharge Plan Discharge Clinical Impression: Pharyngitis Qualifiers: Pharyngitis/tonsillitis etiology: unspecified etiology Qualified Code(s): J02.9 - Acute pharyngitis, unspecified Patient Disposition: Home Condition: Stable Instructions: Antibiotic Form, Pharyngitis (ED) Additional Instructions: Your rapid strep swab was negative today at [facility]. A throat culture will be sent to the laboratory for further testing. If the test is positive, you will receive a phone call within 48 hours and an appropriate antibiotic will be in itiated at that time. Your symptoms are likely due to a viral illness, which is not treated with antibiotics. Typically viral infections last 7-10 days, can linger for couple of weeks. It is very important to treat your symptoms. Drink plenty of water, Gatorade, Pedialyte, ice pops or Jell-O. -Antihistamine medication such as Zyrtec/Claritin/Dayana during the day can help improve symptoms. -doing daily nasal irrigations can help relieve pressure your sinuses. Things like a Neti pot -Use Flonase daily to help reduce the inflammation and dry up your sinuses. -You can also use Mucinex. Be sure to drink plenty of water with this medication at least 8 ounces with every dose and it is important to drink 8 to 10 glasses of water per day. Water is a natural decongestant -Eat and drink things that are easy to swallow, like tea or soup, or popsicles. -Oral rinses such as: Salt water gargles and/or may use topical anesthetic (eg. Chloraseptic spray) or lozenges to relieve dryness or throat pain). -Frequent hand washing or hand manager of manufacturing is one of the best ways to prevent spread of infection. -Using a vaporizer or humidifier at night will also help thin secretions and help with coughing up phlegm. -Follow up with primary care provider in 7-10 days if condition is not improving - For new or worsening symptoms go directly to the nearest ER Patient Language: Zambian Prescriptions: No Action sertraline 100 mg tablet clobetasol 0.05 % cream TOPICAL norethindrone (contraceptive) [Incassia] 0.35 mg tablet clobetasol 0.05 % solution TOPICAL cholestyramine (with sugar) 4 gram powder in packet clobetasol 0.05 % shampoo TOPICAL Slynd 4 mg (28) tablet adalimumab-adaz [Hyrimoz(CF) Pen] 40 mg/0.4 mL pen injector SUBCUT Follow-up/Referrals: Adolfo Preston MD [Primary Care Provider, Pediatrics] Stand Alone Forms: Work/School Release IP Time of Disposition: 12:37
== END 2025-07-12 12:45 | disposition home or self-care (01) ==
PROVIDERS: Emergency Provider Nurse Practitioner; PCP Pediatrics
DX: J02.9 Acute pharyngitis, unspecified (principal); K50.90 Crohn's disease, unspecified, without complications
CPT/HCPCS: 87081; 87880; 99203; G0463

== ENCOUNTER 2025-08-17 16:40 | Emergency (ER) | payer BC, SELFPAY ==
--- NOTE | 2025-08-17 16:47 | ED_ITS ---
HPI - URI/Sore Throat General Chief Complaint: Upper Respiratory Infection Stated Complaint: upper Respiratory Symptoms Time Seen by Provider: 08/17/25 16:47 Source: patient and RN notes reviewed Mode of arrival: ambulatory Limitations: no limitations History of Present Illness HPI Narrative: 19-year-old female presents with concern for 2 week history of stuffy nose, sinus congestion, sore throat chills. Reports hoarse voice. She reports she has been taking DayQuil without relief. She reports she has been taking leftover amoxicillin for 5 days. MD elicited complaint: nasal congestion and sinus pain Related Data Home Medications ?Medication ?Instructions ?Recorded ?Confirmed ?Last Taken ?Type cholestyramine (with sugar) 4 gram ea 07/12/25 Unknow n History powder for susp in a packet clobetasol 0.05 % topical cream topical 07/12/25 Unkn own History norethindrone (contraceptive) 0.35 mg 07/12/25 Unknow n History mg tablet (Incassia) sertraline 100 mg tablet mg 07/12/25 Unknown History Allergies Allergy/AdvReac Type Severity Reaction Status Date / Time NSAIDS (Non-Steroidal AdvReac Intermediate bleed Verified 07/12/25 12:03 Anti-Inflamma Review of Systems Review of Systems: CONSTITUTIONAL: Denies malaise, chills, sweats, or fever. EYES: Denies visual changes, redness, or discharge. ENT: Reports rhinorrhea, congestion, sinus pain, hoarse voice and sore throat. CARDIOVASCULAR: Denies chest pain, palpitations, or edema. RESPIRATORY: Denies cough. Denies dyspnea. GASTROINTESTINAL: Denies abdominal pain, nausea, vomiting, diarrhea SKIN: Denies rash or itching. MUSCULOSKELETAL: Denies myalgia. NEUROLOGIC: Denies headache. All systems reviewed & are unremarkable except as noted in HPI and below PMFSH Comments At time of signature, agree with nursing past medical, surgical, social and family history. There is no relevant family history pertinent to the presenting complaint Exam Narrative: GENERAL: Well-appearing, well-nourished, and in no acute distress. HEAD: Normocephalic EYES: PERRLA, conjunctivae clear ENT: Nares clear, turbinates edematous and erythematous. Mucous membranes moist. TM pearly martinez with sharp light reflex bilaterally; no tragal tenderness. Orop harynx not erythematous without lesions. Tonsils not enlarged and without exudate, no drooling, no hoarseness, no trismus, uvula midline. NECK: Supple. No lymphadenopathy CHEST: Clear to auscultation, breath sounds equal. No wheezing, rhonchi, rales, or stridor. No respiratory distress, speaks in full sentences. HEART: Regular rate and rhythm. No murmur heard. SKIN: Warm, dry, no rash. NEURO: Alert and oriented x3. PSYCH: Normal mood and affect Course Course Emergency Course: Patient is aware of diagnosis, understands and agrees to treatment plan. Anticipatory guidance given. Patient agrees to follow-up as directed and is aware of reasons to seek care at the emergency department. Portions of this record may have been created with voice recognition software Level of Care: Express Care Visit Vital Signs Vital signs: Reviewed. MDM - URI/Sore Throat MDM Narrative Medical decision making narrative: Differential diagnosis considered: Ralph virus, strep pharyngitis, allergic rhinitis, upper respiratory tract infection, sinusitis, rhinosinusitis, nasopharyngitis. viral pharyngitis, otitis media, otitis externa, pneumonia, bronchitis, viral cough syndrome, viral syndrome, and influenza. Exam findings show no acute concerns or changes; patient is non-toxic appearing and is in no distress. Patient is appropriate for outpatient treatment and follow-up. Lab Data Attestation: I reviewed the patient's lab results. Critical Care Time Critical Care Time Critical Care Time: No Discharge Plan Discharge Clinical Impression: Sinusitis Patient Disposition: Home Condition: Stable Instructions: Antibiotic Form, Sinusitis (ED) Additional Instructions: Take medication as directed Nonprescription pain medications, such as acetaminophen (eg, Tylenol) or ibuprofen (eg, Motrin, Advil), are recommended for pain. Flushing the nose and sinuses with a saline solution several times per day has been proven to decrease pain associated with congestion and shorten the duration of symptoms. Nasal steroids (such as Flonase, 2 sprays in each nostril daily) can help to reduce swelling inside the nose, usually within two to three days. These drugs have few side effects and relieve symptoms in most people. Oral decongestants (pseudoephedrine and phenylephrine) may be helpful if you have associated symptoms of ear pain or fullness. Medications to thin secretions (such as guaifenesin) may help to clear mucus. Please follow-up with your primary care doctor in the next 1-2 days. If you cannot follow-up with your primary care doctor please go to the ED for any urgent issues. If you have any worsening of symptoms or any other concerns please go to the ED immediately. Patient Language: Brazilian Prescriptions: New pseudoephedrine HCl [12 Hour Decongestant] 120 mg tablet extended release 120 mg PO Q12H PRN (Reason: nasal congestion) Qty: 12 0RF amoxicillin-pot clavulanate 875-125 mg tablet 1 tablet PO Q12H 10 Days Qty: 20 0RF No Action sertraline 100 mg tablet clobetasol 0.05 % cream TOPICAL norethindrone (contraceptive) [Incassia] 0.35 mg tablet cholestyramine (with sugar) 4 gram powder in packet Follow-up/Referrals: PHYSICIAN,FORWARDER OPERATOR [Primary Care Provider, Internal Medicine] Stand Alone Forms: Work/School Release IP Time of Disposition: 17:19
[2025-08-17 16:50] VITALS: BP 105/73; PULSE 88; RESP 16; TEMP 36.2; O2SAT 99
[2025-08-17 17:16] LABS: EDCOVIDSCREEN Negative (Negative); EDINFLUASCREEN Negative (Negative); EDINFLUBSCREEN Negative (Negative)
== END 2025-08-17 17:25 | disposition home or self-care (01) ==
PROVIDERS: Emergency Provider Nurse Practitioner
DX: J32.9 Chronic sinusitis, unspecified (principal); Z20.822 Contact with and (suspected) exposure to COVID-19
CPT/HCPCS: 87426; 87804; 99213; G0463

== ENCOUNTER 2025-10-08 12:15 | Emergency (ER) | payer BC, SELFPAY ==
--- NOTE | 2025-10-08 12:18 | ED.URI ---
HPI - URI/Sore Throat General Chief Complaint: Upper Respiratory Infection Stated Complaint: Cold Symptoms Time Seen by Provider: 10/08/25 12:30 Source: patient Mode of arrival: ambulatory Limitations: no limitations History of Present Illness HPI Narrative: Dawit is a 19-year-old female patient presenting to the clinic today with complaints of cough, runny nose, sore throat, fatigue, and hot/cold flashes x 2-3 days. She reports has been taking daquil for her symptoms. No known fever. Related Data Home Medications ?Medication ?Instructions ?Recorded ?Confirmed ?Last Taken ?Type cholestyramine (with sugar) 4 gram ea 07/12/25 Unknown History powder for susp in a packet clobetasol 0.05 % topical cream topical 07/12/25 Unknown History norethindrone (contraceptive) 0.35 mg 07/12/25 Unknown History mg tablet (Incassia) sertraline 100 mg tablet mg 07/12/25 Unknown History guselkumab 200 mg/2 mL mg subcut 10/08/25 Unknown History subcutaneous pen injector ([employer] Pen Induction Pack (2 pens)) Allergies Allergy/AdvReac Type Severity Reaction Status Date / Time NSAIDS (Non-Steroidal AdvReac Intermediate bleed Verified 10/08/25 12:24 Anti-Inflamma Review of Systems Review of Systems: Pertinent positives per HPI. Patient denies any fever, rash, headache, visual changes, dizziness, shortness of breath, chest pain, palpitations, nausea, vomiting, diarrhea, constipation, abdominal pain, or any urinary issues. PMFSH Comments At the time of my signature, I reviewed and agree with the nursing past medical, surgical, social, and family history. There is no relevant family history pertinent to the patient complaint. Exam Narrative: General: Well-developed, well nourished, in no apparent distress Head: Normocephalic, atraumatic Eyes: Pupils equally round and reactive to light bilaterally, EOM intact, sclera and conjunctive clear, no discharge, lids normal Ears: TMs intact and clear, ear canals ceruminous, no drainage, grossly hearing normal. Nose: Nares patent, clear nasal discharge, mild inflammation, no sinus tenderness. Mouth: Oral pharynx red without lesions or masses, good dentition, MMM. Postnasal drip Neck: Supple, trachea midline, no enlargement of anterior or posterior cervical nodes, no thyroid masses or goiter palpable. Cardio: Regular rate and rhythm, s1 and s2 normal, no murmur appreciated. Resp: Clear to auscultation bilaterally, no rhonchi, rales, wheezing or rubs Course Course Level of Care: Express Care Visit Vital Signs Vital signs: Vital Signs Temperature 36.1 C L 10/08/25 12: Pulse Rate 80 10/08/25 12: Respiratory Rate 16 10/08/25 12:27 Blood Pressure 110/72 10/08/25 12:27 Pulse Oximetry 100 10/08/25 12:27 Temperature 36.1 C L 10/08/25 12:27 Pulse Rate 80 10/08/25 12: Respiratory Rate 16 10/08/25 12:27 Blood Pressure 110/72 10/08/25 12:27 Pulse Oximetry 100 10/08/25 12:27 MDM MDM Narrative Medical decision making narrative: At the time of visit patient is resting comfortably on the exam table. Patient appears to be nontoxic. Complaints of cough, runny nose, sore throat, fatigue, and hot/cold flashes x 2-3 days. She reports has been taking daquil for her symptoms. No known fever. On exam patient has bilateral TMs intact and clear, ear canals ceruminous, clear nasal drainage, mild anterior turbinate inflammation, oral pharynx red with postnasal drip, heart rates regular rate and rhythm, lung sounds are clear. COVID, influenza, and strep test were ordered Labs COVID, flu, and strep test was performed. COVID testing was positive. Flu and strep test was negative. Plan: I suspect patient has COVID. Work note was given. Supportive measures were discussed with the patient and they voiced understanding discharge instructions and agrees to treatment plan. Return precautions reviewed Differential Diagnosis Differential Diagnosis: Differential diagnostic considerations for upper respiratory infection include upper respiratory infection, croup, otitis media, sinusitis, viral infection, bronchitis, influenza, pharyngitis, strep, uvulitis. Lab Data Labs: Lab Results 10/08/25 10/08/25 Range/Units 12:34 12:40 POC Influenza A Ag Negative (Negative) POC Influenza B Ag Negative (Negative) POC SARS CoV-2 Ag Positive (Negative) POC Grp A Strep Screen Negative (Negative) Discharge Plan Discharge Clinical Impression: COVID-19 Patient Disposition: Home Condition: Stable Instructions: Antibiotic Form, Pharyngitis (ED), How to Recover from COVID-19 at Home (ED) Additional Instructions: Influenza and strep test were negative in the clinic today. We will send strep for culture if this comes back positive we will contact him place you on antibiotics at that time. COVID testing is positive. Increase fluids and stay well hydrated May take Tylenol or motrin as directed on bottle for pain/fever May use Flonase 1 spray in each nare daily May take OTC antihistamines such as Zyrtec or Claritin daily as directed on bottle May apply Vicks vapor rub to chest to open sinuses Sinus rinses for congestion Cepacol spray, cough drops, throat lozenges, warm tea with honey/lemon, gargle salt water to soothe throat BRAT diet for diarrhea Clear liquids x 24 hours then advance as tolerated for nausea/vomiting Go to the ED if you develop a worsening in your condition- high fever not controlled by Tylenol or Motrin, dehydration, weakness, lethargy, shortness of breath, or chest pain. Follow up with your PCP in 3-5 days if symptoms persist. Patient Language: Belarusian Prescriptions: No Action sertraline 100 mg tablet clobetasol 0.05 % cream TOPICAL norethindrone (contraceptive) [Incassia] 0.35 mg tablet cholestyramine (with sugar) 4 gram powder in packet [employer]rem[employer]ya Pen Induction Pk(2pen) 200 mg/2 mL pen injector SUBCUT Follow-up/Referrals: Adolfo Preston MD [Primary Care Provider, Pediatrics] Stand Alone Forms: Work/School Release IP Time of Disposition: 12:37 Quality NIHSS Nursing Documentation ED NIHSS nursing documentation: reviewed/agree
[2025-10-08 12:27] VITALS: BP 110/72; PULSE 80; RESP 16; TEMP 36.1; O2SAT 100
[2025-10-08 12:36] LABS: EDSTREPNEGPOS1 Negative (Negative)
[2025-10-08 12:43] LABS: EDCOVIDSCREEN Positive (Negative); EDINFLUASCREEN Negative (Negative); EDINFLUBSCREEN Negative (Negative)
== END 2025-10-08 12:47 | disposition home or self-care (01) ==
PROVIDERS: Emergency Provider Nurse Practitioner Family; PCP Pediatrics
DX: U07.1 COVID-19 (principal); K50.90 Crohn's disease, unspecified, without complications; L40.9 Psoriasis, unspecified; F41.9 Anxiety disorder, unspecified
CPT/HCPCS: 87081; 87426; 87804; 87880; 99213; G0463